=== PATIENT | male | born 1930 | race Caucasian/White ===

== ENCOUNTER → 2017-04-07 | Outpatient (CLI) | payer OTHER ==
[~2017-04-07] MED LIST: ASPIR-LOW81 MG PO; CARDURA4 MG PO; CARVEDILOL3.125 MG PO; CELEBREX 200 M200 M1 PO; COZAAR100 MG PO; DULOXETINE HCL30 MG PO; FISH OIL 1,001000 M2 PO; FISH OIL DR 1,1 EACH PO; FLOMAX0.4 MG PO; HYDROCHLOROTH12.5 M1 PO; LIDODERM 5%1 PATCH TOP; LINZESS290 MCG PO; NAPROSYN500 MG PO; NEURONTIN100 MG PO; NORCO 5-325 TA1 EACH PO; NUCYNTA50 MG PO; OXYBUTYNIN 5 MG5 M1 PO; OXYBUTYNIN 5 MG5 M2 PO; PERCOCET 5-3251 EACH PO; PLAVIX 75 MG TA75 M1 PO; PROSCAR 5MG TABL5 M1 PO; SOTALOL80 MG PO; TRAMADOL100 MG PO; TYLENOL EXTRA500 MG PO; VITAMIN B-12500 MCG PO; VITAMIN D2000 UNIT PO; VITAMIN D3400 UNIT PO; ZOCOR 20 MG TAB20 M1 PO
--- NOTE | 2017-04-08 08:24 | PAINCON ---
[address] [address] PAIN MANAGEMENT CONSULTATION Name: SARITAVANDA Soriano Room: [facility] NIR Man#: [id number] Admission: 04/07/17 Attend Phys: Alba Bullard Discharge: Date of : 32 Report #: [id number] THIS REPORT FOR: //name// CC: Dion Joseph DATE OF SERVICE: 04/07/2017 The patient is a very pleasant 86-year-old gentleman long known to pain clinic, being treated for lumbar radiculopathy status post decompressive laminectomy and axial back pain. Last seen in pain clinic on 01/13/2017. We did bilateral facet joint injections which the patient reports afforded some relief. He returns to pain clinic today for prolonged visit, he was seen from 8:50-9:20. Greater than 50% of this 30-minute visit was spent counseling the patient. 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 He has had a steroid injection in the past with some help. Pain has recurred over the holidays. He did see the orthopedic nurse practitioner on 02/19/2017. Apparently had an injection, near the right trochanteric bursa with unfortunately really no changes in the symptoms. Followed, he developed pain radiating to the calf and thigh. He had fallen at home 2 weeks ago. He notes he does "furniture walking" if he is not using his walker. He simply missed an object he was reaching for as he walked. He somewhat strained his left shoulder and presented to the Hospital ER. No fractures were noted. Followed up with Dr. Garrison, his orthopedic surgeon. He noted with no osseous pathology in the left shoulder and there appeared to be no complete rotator cuff tear. They have elected to continue with simply range of motion exercises. He did, at that time, repeat a right hip trochanteric bursa at this time with some relief, but really no dramatic improvement in symptoms (this was 03/2017). He is describing significant neurogenic claudication with pain and heavy sensation in his legs with any ambulation more than about 50-100 feet. He has been taking tramadol 50 mg 2 tablets 3 times a day with dwindling efficacy. He has had trouble with constipation using hydrocodone in the past. He incidentally tells me he is planning a river cruise in [place] in September and would like to try and get a little more functional prior to then. He works all of the [employer] limiting access to some of the high dollar [employer] "boxes." He enjoys job but is having trouble even walking from the parking lot to his job position. To his credit, he continues to exercise. He uses a recumbent bike 5 times a week, 40 minutes at a start. We talked today about adding some circuit training for some core stability and lower extremity strength. The patient notes subjective pain score is 5 on a VAS, but pain gets up to 9 [place] [address] PAIN MANAGEMENT CONSULTATION Name: VANDA STEIN [id number] Admission: 04/07/17 Attend Phys: Alba Bullard Discharge: Date of : 32 Report #: [id number] PHYSICAL EXAMINATION: Shows 5-foot 7-inch, 190-pound gentleman, BMI is 29.9 kilograms per meter squared. Blood pressure 156/99, pulse 67, respirations 16. Alert and oriented to person, place and time, judged to be a reasonable historian, getting more frustrated with ongoing pain. Rises from chair using armrest, modestly antalgic gait, diffuse tenderness across the low back, pain radiating into both legs with nominal activity. Reviewed prior therapeutic options, we had trialed a spinal cord stimulator back in 2013. This did not afford good relief. He cannot take nonsteroidal anti-inflammatory medications due to hypertension. RECOMMENDATION: Long discussion with the patient today about therapeutic options. Ultimately, we have elected to get an MRI with and without contrast of the lumbar spine. We will trial Nucynta 50 mg 3 times a day one-half to one tablet as needed for pain. This should afford less sedation and constipation than the hydrocodone. If for some reason, insurance company will not pay for that, we will try Percocet 5/325, similarly one-half to one tablet 3 times a day. See him back in 4 weeks for reevaluation. We reviewed the MRI at that time. Pain impact score is 7/70. We may consider a trial of a high frequency spinal cord stimulator without paresthesia. He may get better benefit if other therapeutic modalities do not afford efficacy. Discharged in good and stable condition after prolonged visit. Follow up in 30 days to evaluate efficacy of medication change and review MRI with and without contrast of the lumbar spine. <ELECTRONICALLY SIGNED> By: Tariq Joseph DO 04/08/17 0824 1457 1955Tariq Joseph DO /nt
== END ==
LOC: M.PC 01:24
DX: M54.16 Radiculopathy, lumbar region (principal); M54.89 Other dorsalgia; Z98.890 Other specified postprocedural states

== ENCOUNTER → 2017-05-05 | Outpatient (CLI) | payer OTHER ==
--- NOTE | 2017-05-10 07:49 | PAINCON ---
[address] [address] PAIN MANAGEMENT CONSULTATION Name: VANDA STEIN Room: [facility] Donovan#: [id number] Admission: 05/05/17 Attend Phys: Alba Bullard Discharge: Date of : 32 Report #: [id number] THIS REPORT FOR: //name// CC: Dion Joseph HISTORY OF PRESENT ILLNESS: The patient is a pleasant 86-year-old gentleman long known to pain clinic, being treated for lumbar radiculopathy status post decompressive laminectomy, axial back pain, lumbar spondylosis. He is seen for prolonged visit today, from 8:05 to 8:35, greater than 50% of this 25+ minute visit was spent counseling the patient. I reviewed the MRI obtained on 04/14/2017. It does show severe degenerative loss of disk height at L1-L2, L2-L3, notes canal narrowed to 0.9 cm, left neural foraminal narrowing. L3-L4 shows livhfvju-zw-bulgcw degenerative disk space, narrowing thecal sac down to 0.7 cm, left-side worse than the right. L4-L5 notes uykosvwd-kf-gufqwb degenerative disk space narrowing. L5-S1 similarly notes narrowing with left neural foramen, moderately narrowed compared to the right. There is some atypical focal contour bulge along the posterior margin of the abdominal aorta, thought to represent possibly an atherosclerotic ulcer or atypical focal aneurysm. This does appear a little larger than previously. We will refer the patient to his primary treating physician for further evaluation. With ongoing lumbar radicular pain and increased neurogenic claudication symptoms, I am concerned that the patient's functional status is becoming more compromised, though I do not see any dramatic surgical issues in his back. The patient had a coronary artery bypass graft surgery in 1995. They did scavenge left saphenous vein graft. He has significant pretibial edema bilateral lower extremities, left greater than right. Unfortunately, he has a nonhealing lesion on the right leg since about January. Has some clear drainage here. He does have +1 to 2 pretibial edema bilaterally. I think that the reason for the nonhealing component is simply the ongoing weeping nature of the lesion. I did refer him to the wound clinic for this. He is following up with his materials development engineer this afternoon, we will ask them to evaluate the aortic aneurysm findings. Regarding future therapeutic options, we have elected to continue his tramadol during the day and Percocet only at night (daytime use of Percocet cause hypersomnolence). We will authorize epidural injection at L3-L4 at next visit to help with the radicular component of pain. May give further consideration to high [place] [address] PAIN MANAGEMENT CONSULTATION Name: VANDA STEIN Room: [facility] Donovan#: [id number] Admission: 05/05/17 Attend Phys: Alba Bullard Discharge: Date of : 32 Report #: [id number] We will seek authorization for epidural injection under fluoroscopy at next visit. PHYSICAL EXAMINATION: Does note a pleasant 86-year-old gentleman. Vital signs show blood pressure 150/75, pulse 87, respirations 16. Rises from chair using armrest. Modestly antalgic gait. Stooped posture. Aforementioned right lower extremity weeping lesion. Positive straight leg raise bilaterally, decreased hip flexion strength compatible with bilateral L3-L4 stenosis. RECOMMENDATIONS: 1. The patient was discharged in good and stable condition after prolonged visit today. 2. Continue tramadol during the day, Percocet at night. 3. We will seek authorization for L3-L4 epidural injection midline under fluoroscopy at next visit. 4. Consideration for spinal cord stimulator trial (high frequency, Nevro). 5. Follow up with cardiovascular surgeon regarding aneurysm findings. ADDENDUM Reviewing the chart, it appears that Dr. Tee has already ordered an ultrasound of the retroperitoneum and aorta, this was accomplished 04/19/2017. 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 No aneurysm was noted. Maximum caliber of the abdominal aorta was 2.6 x 2.3 cm. <ELECTRONICALLY SIGNED> By: Tariq Joseph DO 05/10/17 0749 1235 1849Tariq Joseph DO /nt
== END ==
LOC: M.PC 01:41
DX: M54.16 Radiculopathy, lumbar region (principal); M54.9 Dorsalgia, unspecified; M47.896 Other spondylosis, lumbar region; Z98.890 Other specified postprocedural states

== ENCOUNTER → 2017-05-05 | Outpatient (CLI) | payer OTHER | LOC: M.WC 09:00 | DX: I87.2 Venous insufficiency (chronic) (peripheral) (principal); L97.811 Non-pressure chronic ulcer of other part of right lower leg limited to breakdown of skin; Z95.1 Presence of aortocoronary bypass graft; Z87.891 Personal history of nicotine dependence; Z72.89 Other problems related to lifestyle ==

== ENCOUNTER → 2017-05-12 | Outpatient (CLI) | payer OTHER | LOC: M.WC 03:23 → M.PC 11:30 | DX: L97.211 Non-pressure chronic ulcer of right calf limited to breakdown of skin (principal); I87.311 Chronic venous hypertension (idiopathic) with ulcer of right lower extremity; I70.232 Atherosclerosis of native arteries of right leg with ulceration of calf; F06.31 Mood disorder due to known physiological condition with depressive features; Z68.29 Body mass index [BMI] 29.0-29.9, adult; Z87.891 Personal history of nicotine dependence; Z72.89 Other problems related to lifestyle; Z95.1 Presence of aortocoronary bypass graft ==

== ENCOUNTER → 2017-05-19 | Outpatient (CLI) | payer OTHER ==
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
== END ==
LOC: M.WC 04:45 → M.PC 10:00
DX: I70.232 Atherosclerosis of native arteries of right leg with ulceration of calf (principal); I87.311 Chronic venous hypertension (idiopathic) with ulcer of right lower extremity; L97.811 Non-pressure chronic ulcer of other part of right lower leg limited to breakdown of skin; I71.4 Abdominal aortic aneurysm, without rupture; F06.31 Mood disorder due to known physiological condition with depressive features; Z87.891 Personal history of nicotine dependence; Z72.89 Other problems related to lifestyle; Z95.1 Presence of aortocoronary bypass graft

== ENCOUNTER → 2017-05-26 | Outpatient (CLI) | payer OTHER | LOC: M.WC 01:53 | DX: I70.232 Atherosclerosis of native arteries of right leg with ulceration of calf (principal); L97.811 Non-pressure chronic ulcer of other part of right lower leg limited to breakdown of skin; I71.4 Abdominal aortic aneurysm, without rupture; F06.31 Mood disorder due to known physiological condition with depressive features; Z68.29 Body mass index [BMI] 29.0-29.9, adult; Z87.891 Personal history of nicotine dependence; Z72.89 Other problems related to lifestyle; Z95.1 Presence of aortocoronary bypass graft ==

== ENCOUNTER → 2017-06-02 | Outpatient (CLI) | payer OTHER | LOC: M.WC 01:54 | DX: I87.311 Chronic venous hypertension (idiopathic) with ulcer of right lower extremity (principal); L97.811 Non-pressure chronic ulcer of other part of right lower leg limited to breakdown of skin; I70.232 Atherosclerosis of native arteries of right leg with ulceration of calf; I71.4 Abdominal aortic aneurysm, without rupture; F06.31 Mood disorder due to known physiological condition with depressive features; Z68.29 Body mass index [BMI] 29.0-29.9, adult; Z87.891 Personal history of nicotine dependence; Z95.1 Presence of aortocoronary bypass graft ==

== ENCOUNTER 2017-06-04 06:15 | Inpatient (IN) | payer OTHER ==
[~2017-06-04] VITALS: Ht 170.2 cm; Wt 88.5 kg
[~2017-06-04 06:15] MED LIST changes: -NEURONTIN100 MG PO; -PLAVIX 75 MG TA75 M1 PO; -SOTALOL80 MG PO; -VITAMIN D3400 UNIT PO
[2017-06-04 06:47] LABS: ABSOLUTE BASOPHILS 0.1 thou/uL (0.0-0.2); ABSOLUTE LYMPHOCYTES 1.2 thou/uL (0.8-5.3); ABSOLUTE MONOCYTES 0.5 thou/uL (0.0-1.2); ABSOLUTE NEUTROPHILS 7.5 thou/uL (1.6-8.1); BASOPHILS 0.8 %; EOSINOPHILS 0.5 %; HEMATOCRIT 38.3 % (42.0-52.0); LYMPHOCYTES 12.7 %; MCH 32.5 pg (26.0-34.0); MCHC 34.1 g/dL (28.0-37.0); MCV 95.4 fL (80.0-100.0); MONOCYTES 5.1 %; MPV 6.7 fl. (7.2-11.1); NUCLEATED RBCS 0 /100WBC; PLATELET COUNT* 259 thou/uL (150-400); POLYS 80.9 %; RBC 4.02 mil/uL (4.50-6.00); RDW-CV 12.5 % (10.5-14.5); WBC 9.3 thou/uL (4.0-11.0)
[2017-06-04 07:03] LABS: CALCIUM 8.9 mg/dL (8.5-10.1); CREATININE 1.3 mg/dL (0.6-1.3); POTASSIUM 3.6 mmol/L (3.5-5.1)
--- NOTE | 2017-06-04 13:55 | EKG ---
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: [facility] : 1930 Requested By: Michael Way Order Number: [id number] Reading MD: Efrain Jones Measurements Intervals [place] Rate: 82 P: SD: QRS: -13 QRSD: 109 T: 44 QT: 398 QTc: 465 Interpretive Statements Atrial fibrillation RSR' in V1 or V2, right VCD or RVH Left ventricular hypertrophy No previous ECG available for comparison Electronically Signed On 06-04-2017 13:55:13 CDT by Efrain Jones [email or web address] <ELECTRONICALLY SIGNED> By: Efrain Jones MD, [facility] 06/04/17 1355 0705 4 Efrain Jones MD, FACC /EPI
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
[2017-06-04 19:45] VITALS: BP 117/61
[2017-06-05] VITALS (8 sets, daily range): BP systolic 120–169; BP diastolic 54–86
--- NOTE | 2017-06-05 03:07 | NUR ---
ASSUMED CARE OF PT AT 1900. PT IS ALERT AND ORIENTED. VSS. PERRLA. NO COMPLAINTS OF PAIN. UP WITH [address]AC IN [address] OVER RIGHT CALF. PT IS SLEEPING QUIETLY IN BED. RESPIRATIONS ARE EVEN AND NONLABORED. WILL CONTINUE TO MONITOR PT.
--- NOTE | 2017-06-05 10:12 | NUR ---
INITIAL ASSESSMENT: Pt evaluated for d/c planning needs. Reviewed chart and spoke with nurse and pt. Pt is alert and oriented. Pt is and lives alone in house. Pt was independent with ADL's prior to admission. Pt remains active in the community and is still driving. Pt has been seen in the wound clinic at [facility]. Pt has not had home health in the past. Pt has walker and cane at home. Pt is concerned about his mobility with wound vac and living alone. Discussed pt's concerns with RN. Will remain available to assist as needed.
--- NOTE | 2017-06-05 12:39 | EKG ---
[place] [address] ELECTROCARDIOGRAM REPORT Name: VANDA STEIN Room: [address] ADM IN M.R.#: [id number] Admission: 06/04/17 Attend Phys: Efrain Jones MD, F Discharge: Date of : 32 Report #: [id number] THIS REPORT FOR: //name// [facility] Test Date: 2017-06-05 Test Time: 07:47:22 Pat Name: VANDA STEIN Department: Room: [address] Gender: M Crew Foreman: [facility] : 1930 Requested By: Efrain Jones Order Number: [id number] Reading MD: Amor Grant Measurements Intervals [place] Rate: 58 P: -23 SC: 202 QRS: 1 QRSD: 113 T: 30 QT: 479 QTc: 471 Interpretive Statements Sinus rhythm Atrial premature complex Incomplete right bundle branch block Compared to ECG 06/04/2017 07:05:46 Atrial premature complex(es) now present Incomplete right bundle-branch block now present Atrial fibrillation no longer present Right ventricular hypertrophy no longer present Left ventricular hypertrophy no longer present Electronically Signed On 06-05-2017 12:39:15 CDT by Amor Grant [email or web address] <ELECTRONICALLY SIGNED> By: Amor Grant MD, FACC 06/05/17 1239 0747 0747 Amor Grant MD, FAC /EPI
--- NOTE | 2017-06-05 13:16 | NUR ---
ASSUMED CARES OF PT AT 0700. PT IN BED, BED IN LOW LOCKED POSITION. CALL BUTTON AND PERSONAL ITEMS IN PT REACH. FALL PRECAUTIONS IN PLACE. SCD ON LEFT LEG, WOUND VAC RUNNING ON RIGHT LEG, DRESSING IN PLACE, C/D/I. PT ANNOYED AND FRUSTRATED, FEELS LIKE ARE NOT TELLING HIM/EXPLAINING THING TO HIM. NURSES SAT DOWN AND TALKED IN DEPTH WITH PT ABOUT WOUND, WOUND VAC, DR. GARCIA WAS CALLED AND STATED OFFICE WOULD SEE PT ON WEDNESDAY REGARDING PT CONCERNS. PT A&O X4, OCC AFIB, BRADYCARDIA ON CAGE CLERK. LCTAB, VSS ON RA. AFEBRILE, PERRLA, SKIN INTACT OTHER THAN RIGHT LE. PT SBA TO BATHROOM AND CHAIR. LAST BM YESTERDAY. RIGHT FA IV PATENT TO FLUSH/SALINE LOCKED. CONSULTS CARDIO, WOUND, VASCULAR. PT DENIES PAIN AT THIS TIME. RECLINER PROVIDED FOR COMFORT. EDUCATION NOTES GIVEN TO PT REGARDING WOUND CARE, DIET AND WOUND VAC. PT PROGRESSING TOWARDS GOAL. HOURLY ROUNDS CONTINUE. WILL CONTINUE TO MONITOR PT PROGRESS AND STATUS.
--- NOTE | 2017-06-05 18:56 | NUR ---
PT REMAINS STABLE AT SHIFT CHANGE. REPORT TO CONFERENCE SERVICES DIRECTOR FOR CONTINUED CARES. VSS ON RA. OCC. HYPERTENSIVE. WOUND VAC IN PLACE RIGHT LE. HOURYLY ROUNDS COMPLETED. PT PROGRESSING TOWARDS GOAL.
--- NOTE | 2017-06-06 01:08 | NUR ---
TOOK PT INTO CARE AT 1930. A & O, ABLE TO MAKE NEEDS KNOWN, ASSESSMENT COMPLETED CHARTED, RES NO C/O PAIN AT THIS TIME, RES RESTING COMFORTABLY IN BED, WOUND VAC ON RIGHT LEG. WILL CONTINUE WITH PLAN OF CARE.
[2017-06-06 04:00] VITALS: BP 152/78
[2017-06-06 08:00] VITALS: BP 150/69
[2017-06-06 08:27] VITALS: BP 150/69
[2017-06-06] MEDS ORDERED: SOTALOL80 MG PO (12:52)
--- NOTE | 2017-06-06 14:34 | NUR ---
ORDER RECEIVED TO DISCHARE PATIENT HOME TO SELF CARE. MED REC, MEDICATION EDUCATION, STROKE EDUCATION, NEED FOR FOLLOW UP APPOINTMNETS WITH CARDIOLOGY AND VASACULAR COVERED AND AND STATED UNDERSTOOD BY PATIENT. DIANA EDUCATED ON USE AND CARE FOR WOUND VAC WITH DIRECTIONS FROM DR GERMAIN. IV AND TELEMETRY PACK REMOVED. VITAL SIGNS STABLE AND PATIENT IN NOAPPARENT DISTRESS AT TIME OF DISCHARGE. PATIENT WAS TAKEN VIA WHEELCHAIR TO AWAITING CAR WITH SON PRESENT. HOURLY ROUNDING COMPLETED FOR PATIENT SAFETY. DISCHARE TIME OF 13:30.
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
--- NOTE | 2017-06-11 11:08 | D ---
[address] [address] DISCHARGE SUMMARY Name: VANDA STEIN Room: [address] IN M.R.#: [id number] Admission: 06/04/17 Attend Phys: Efrain Jones MD, F Discharge: 06/06/17 Date of : 32 Report #: [id number] THIS REPORT FOR: //name// CC: Efrain Tee DATE OF SERVICE: 06/06/2017 FINAL DIAGNOSES: 1. Nonhealing wound. 2. Status post wound VAC placement. 3. Postoperative atrial fibrillation, sotalol loading. 4. Coronary artery disease. HOSPITAL SUMMARY: The patient is an 86-year-old man who has a nonhealing ulcer after traumatic injury to his leg. He underwent a wound VAC per Dr. Way from Vascular Surgery. Postoperatively, he developed atrial fibrillation. Based on this, he was placed on sotalol and converted to a sinus rhythm and finished sotalol loading today. His discharge heart rate is 50-55 beats per minute on telemetry. He did not have any recurrences of atrial fibrillation. His QT interval is less than 450 milliseconds. He has a history of coronary artery disease, but denied chest pain or pressure throughout his hospitalization previously. He is followed by Dr. Song for this. FOLLOWUP: He will follow up with Dr. Song within 3-4 weeks. DISCHARGE MEDICATIONS: His home medications will remain unchanged with the exception of substituting carvedilol. He will switch to sotalol 80 mg p.o. b.i.d. Other medications will include the following: Baby aspirin 81 mg daily, atorvastatin 20 mg daily, doxazosin 4 mg daily, losartan 100 mg daily. <ELECTRONICALLY SIGNED> By: Amor Grant MD, [facility] 06/11/17 1108 1046 1113Amor Grant MD, FAC /nt
[2017-06-17] MEDS ORDERED: HYDROCHLOROTH12.5 M1 PO (09:32)
[2017-06-17] MEDS ORDERED: PLAVIX 75 MG TA75 M1 PO (16:02)
--- NOTE | 2017-06-23 09:47 | OP ---
[address] [address] OPERATIVE REPORT Name: VANDA STEIN Room: [address] IN M.R.#: [id number] Admission: 06/04/17 Attend Phys: Efrain Jones MD, F Discharge: 06/06/17 Date of : 32 Report #: [id number] THIS REPORT FOR: //name// CC: Efrain Tee DATE OF SERVICE: 06/04/2017 PREOPERATIVE DIAGNOSIS: Right lower extremity venous stasis ulcer. POSTOPERATIVE DIAGNOSIS: Right lower extremity venous stasis ulcer. SURGEON: Michael Way DO. BINGO FLOATER: None. PROCEDURE: Excisional debridement, right lower extremity venous stasis ulcer measuring 4 cm x 4 cm x 1.5 cm in depth, excising muscle and tendon. ESTIMATED BLOOD LOSS: 50 mL. SPECIMEN: None. COMPLICATIONS: None. CONDITION: Stable. DISPOSITION: Home. INDICATIONS FOR THE PROCEDURE AND CONSENT: The patient presented with right lower extremity venous stasis ulcer initiated by trauma. The patient has had some difficulty healing. There have been several barriers to his care including inability to tolerate compression wraps. He has refused debridements in the wound care center due to excessive copay cost. We have done our best to work around these issues and I have discussed wound VAC therapy as well, which may limit the number debridements that are required. He is here today for excisional debridement and possible wound VAC placement. He is hopeful to also remain outpatient. There has been some discussion over whether or not he has new onset atrial fibrillation, Cardiology is to evaluate him perioperatively to discuss this issue. After all risks and benefits were discussed with the patient, the patient wished to proceed, was consented and scheduled. PROCEDURE IN DETAIL: After timeout was performed, the patient was placed in [address] [address] OPERATIVE REPORT Name: VANDA STEIN Room: [address] IN [facility]#: [id number] Admission: 06/04/17 Attend Phys: Efrain Jones MD, F Discharge: 06/06/17 Date of : 32 Report #: [id number] supine position with sterile prep and drape of the right lower extremity. A 10 blade scalpel was then used to excise the necrosed skin, muscle and tendon and remove significant slough and debris from the base of the wound. This was debrided back to healthy bleeding muscle. After this debridement, the depth of his wound had increased significantly. I did not feel a shallow disposable VAC would be appropriate for the depth of the wound. I then, as the patient did want to be discharged, was able to modify a Prevena VAC to accommodate the depth as well as provide a disposable VAC. I did accomplish this by removing the layer that normally would rest on the skin and cut the foam to fit the wound and protected the skin with a clear adhesive dressing in the periwound. I then applied the VAC on top of this. It appeared to work well and maintain suction. A light compressive Rene was then applied. The patient tolerated the procedure well. Lap, needle and instrument counts were correct. The patient was transferred to recovery in stable condition. <ELECTRONICALLY SIGNED> By: Michael Way DO 06/23/[id number] DO /nt
[2017-08-04] MEDS ORDERED: NEURONTIN100 MG PO (12:35)
== END 2017-06-06 13:15 | disposition home or self-care (01) | DRG 264 ==
LOC: M.SUR 06:15 → M.2W 14:51 → M.TBA 14:51 → M.2W 14:55 → M.SUR 16:23 → M.2W 06-06 13:15
PROVIDERS: Surgery; ADMIT Internal Medicine Cardiovascular Disease
PROC: 0JBN0ZZ Excision of Right Lower Leg Subcutaneous Tissue and Fascia, Open Approach (ICD-10-PCS; principal; 2017-06-04)
DX: I70.201 Unspecified atherosclerosis of native arteries of extremities, right leg (principal); J98.11 Atelectasis; I48.0 Paroxysmal atrial fibrillation; I10 Essential (primary) hypertension; E78.5 Hyperlipidemia, unspecified; G89.29 Other chronic pain; M54.9 Dorsalgia, unspecified; I25.10 Atherosclerotic heart disease of native coronary artery without angina pectoris; Z95.1 Presence of aortocoronary bypass graft; Z98.49 Cataract extraction status, unspecified eye; Z82.49 Family history of ischemic heart disease and other diseases of the circulatory system

== ENCOUNTER → 2017-06-09 | Outpatient (CLI) | payer OTHER ==
[~2017-06-09] MED LIST changes: +NEURONTIN100 MG PO; +PLAVIX 75 MG TA75 M1 PO; +SOTALOL80 MG PO; +VITAMIN D3400 UNIT PO
== END ==
LOC: M.WC 02:21
DX: I70.232 Atherosclerosis of native arteries of right leg with ulceration of calf (principal); I87.311 Chronic venous hypertension (idiopathic) with ulcer of right lower extremity; L97.811 Non-pressure chronic ulcer of other part of right lower leg limited to breakdown of skin; I71.4 Abdominal aortic aneurysm, without rupture; F06.31 Mood disorder due to known physiological condition with depressive features; Z68.29 Body mass index [BMI] 29.0-29.9, adult; Z87.891 Personal history of nicotine dependence; Z95.1 Presence of aortocoronary bypass graft

== ENCOUNTER → 2017-06-16 | Outpatient (CLI) | payer OTHER | LOC: M.WC 00:26 → M.PC 08:40 | DX: I87.311 Chronic venous hypertension (idiopathic) with ulcer of right lower extremity (principal); L97.811 Non-pressure chronic ulcer of other part of right lower leg limited to breakdown of skin; I70.232 Atherosclerosis of native arteries of right leg with ulceration of calf; F06.31 Mood disorder due to known physiological condition with depressive features; Z68.29 Body mass index [BMI] 29.0-29.9, adult; Z87.891 Personal history of nicotine dependence; Z95.1 Presence of aortocoronary bypass graft ==

== ENCOUNTER → 2017-06-17 | Outpatient (CLI) | payer OTHER ==
[~2017-06-17] VITALS: Ht 170.2 cm; Wt 81.6 kg
[2017-06-17] VITALS (8 sets, daily range): BP systolic 140–175; BP diastolic 53–90
[2017-06-17 09:33] LABS: ABSOLUTE BASOPHILS 0.1 thou/uL (0.0-0.2); ABSOLUTE EOSINOPHILS 0.1 thou/uL (0.0-0.7); ABSOLUTE LYMPHOCYTES 1.2 thou/uL (0.8-5.3); ABSOLUTE MONOCYTES 0.5 thou/uL (0.0-1.2); ABSOLUTE NEUTROPHILS 6.3 thou/uL (1.6-8.1); BASOPHILS 0.8 %; EOSINOPHILS 1.6 %; HEMATOCRIT 38.4 % (42.0-52.0); HEMOGLOBIN 13.1 gm/dL (14.0-18.0); LYMPHOCYTES 14.4 %; MCH 32.3 pg (26.0-34.0); MCHC 33.9 g/dL (28.0-37.0); MONOCYTES 6.3 %; MPV 7.3 fl. (7.2-11.1); NUCLEATED RBCS 0 /100WBC; PLATELET COUNT* 270 thou/uL (150-400); POLYS 76.9 %; RBC 4.05 mil/uL (4.50-6.00); RDW-CV 12.1 % (10.5-14.5); WBC 8.1 thou/uL (4.0-11.0)
[2017-06-17 09:41] LABS: CALCIUM 9.1 mg/dL (8.5-10.1); CREATININE 1.1 mg/dL (0.6-1.3)
[2017-06-17 09:46] LABS: ALBUMIN 3.3 g/dL (3.4-5.0); TOTAL BILIRUBIN 0.5 mg/dL (<0.1-1.0); TOTAL PROTEIN 6.6 g/dL (6.4-8.2)
--- NOTE | 2017-06-23 09:47 | OP ---
[facility] [address] [place] [address] OPERATIVE REPORT Name: SARITAVANDA Soriano Room: [facility]#: [id number] Admission: 06/17/17 Attend Phys: Alba Dunn Discharge: Date of : 32 Report #: [id number] THIS REPORT FOR: //name// CC: Michael Tee DATE OF SERVICE: 06/17/2017 PREOPERATIVE DIAGNOSIS: Peripheral vascular disease with ulcer in right lower extremity. POSTOPERATIVE DIAGNOSES: Peripheral vascular disease with ulcer in right lower extremity. Additionally, the patient also has claudication. ANESTHESIA: Moderate sedation. PROCEDURES: 1. Ultrasound-guided access, left common femoral artery. 2. Aortogram. 3. Right lower extremity angiogram, catheter position third order. 4. Anterior tibial and posterior tibial and tibioperoneal trunk angioplasty with Bard 3 mm x 150 Ultraverse angioplasty balloon. 5. Limited angiogram, left common femoral artery. 6. Angio-Seal closure, left common femoral artery. ESTIMATED BLOOD LOSS: Minimal. SPECIMEN: None. COMPLICATIONS: None. CONDITION: Stable. DISPOSITION: Home. INDICATIONS FOR THE PROCEDURE AND CONSENT: The patient is an 86-year-old male who presented to [facility] Center with traumatic venous stasis ulcer. The patient has had difficulty healing despite some debridement, some compression and some wound VAC therapy. The patient has intermittently been compliant with recommendations. At one point, I sent the patient for CT angiogram and diagnostic imaging. Unfortunately, this failed to visualize the tibial vessels due to timing of contrast. I discussed with the patient repeat CT angiogram with focus, timing versus diagnostic angiography and possible intervention. The patient elected for angiography. The patient was consented and scheduled. PROCEDURE IN DETAIL: After timeout was performed, the patient was placed in [place] [id number] OPERATIVE REPORT Name: SARITAVANDA Christie Room: [facility] NIR Man#: [id number] Admission: 06/17/17 Attend Phys: Alba Dunn Discharge: Date of : 32 Report #: [id number] supine position with sterile prep and drape of the anterior groin, thigh and abdomen. The ultrasound was utilized to identify the left common femoral artery and Seldinger technique was used to place a 6-Malian sheath. Glidewire Advantage and UF catheter were advanced into the infrarenal aorta and the aortogram was performed. This demonstrated the aorta, bilateral iliac, external and internal iliac arteries to be widely patent without flow limitation or stenosis. I then advanced a Glidewire Advantage and UF catheter in the right external iliac artery and performed a right lower extremity angiogram. The right lower extremity angiogram demonstrated contrast to be very slow to flow and apparently had a very slow cardiac output. He did have hypertension and despite high blood pressure, was unable to drive the contrast in a very timely fashion. It took approximately 8-9 seconds for the contrast to go from the femoral area to the tibial area. Therefore, advanced a Glidewire Advantage in the distal popliteal and use of seeker catheter over a wire to get more directed imaging of the tibial vessels as I could not see them well from above. This demonstrated the anterior tibial artery to have multiple tandem stenoses, greater than 80%, including one greater than 50% near the origin. The tibioperoneal trunk and peroneal artery were opened. The posterior tibial artery was patent, but it also had a very focal severe stenosis greater than 80% in its mid portion. These appeared appropriate for angioplasty, especially the anterior tibial in light of his nonhealing wound and ischemic appearing muscle. I then systemically heparinized the patient with 6000 units of heparin, allowed to circulate for 3 minutes. I exchanged the 6-Malian sheath for a Johann up and over sheath. I advanced the Glidewire Advantage and seeker catheter into the anterior tibial vessel and was able to negotiate down the anterior tibial without much difficulty. We removed the seeker and obtained a 3 mm x 150 angioplasty balloon. This was advanced into position and angioplasty performed and held for 3 minutes. Two tandem inflations were required. Repeat angiography demonstrated excellent radiographic result. In order to take those pictures, I exchanged for an 0.014 wire and used a copilot. I then was able to renegotiate the 0.014 wire into the posterior tibial vessel and advanced the 3 mm balloon over a wire and angioplasty was performed and held for 3 minutes. Again, tandem inflations were performed to ensure uniformity along the entire vessel. Repeat angiography demonstrated excellent radiographic result with improved flow. I then retracted the sheath into the left external iliac artery and attempted angiography of the left lower extremity. Again, cardiac output was a significant issue. I was unable to visualize the tibial vessels even with prolonged wait times and attempted timing of boluses. He may require left lower extremity angiogram should he demonstrate improvement in his symptoms on his right leg. [address] [place] [address] OPERATIVE REPORT Name: VANDA STEIN Room: [facility] LilliRaj#: [id number] Admission: 06/17/17 Attend Phys: Alba Dunn Discharge: Date of : 32 Report #: [id number] I then noted that the common femoral vessel was appropriate for Angio-Seal closure and a 6-Malian Angio-Seal was selected and deployed in standard fashion. Pressure was held for hemostasis. The patient tolerated the procedure well. Lap, needle and instrument counts were correct. <ELECTRONICALLY SIGNED> By: Michael Way DO 06/23/[address] DO /jt
== END | disposition home or self-care (01) ==
LOC: M.INT 08:53
PROVIDERS: Surgery
DX: I70.212 Atherosclerosis of native arteries of extremities with intermittent claudication, left leg (principal); L97.829 Non-pressure chronic ulcer of other part of left lower leg with unspecified severity; I10 Essential (primary) hypertension; E78.00 Pure hypercholesterolemia, unspecified; Z96.642 Presence of left artificial hip joint; Z98.890 Other specified postprocedural states; Z79.82 Long term (current) use of aspirin; Z79.899 Other long term (current) drug therapy; Z79.891 Long term (current) use of opiate analgesic

== ENCOUNTER → 2017-06-18 | Outpatient (CLI) | payer OTHER | LOC: M.WC 00:37 | DX: I87.311 Chronic venous hypertension (idiopathic) with ulcer of right lower extremity (principal); L97.811 Non-pressure chronic ulcer of other part of right lower leg limited to breakdown of skin; I70.232 Atherosclerosis of native arteries of right leg with ulceration of calf; I71.4 Abdominal aortic aneurysm, without rupture; F06.31 Mood disorder due to known physiological condition with depressive features; Z87.891 Personal history of nicotine dependence; Z95.1 Presence of aortocoronary bypass graft ==

== ENCOUNTER → 2017-06-21 | Outpatient (CLI) | payer OTHER | LOC: M.WC 02:09 | DX: I87.311 Chronic venous hypertension (idiopathic) with ulcer of right lower extremity (principal); L97.811 Non-pressure chronic ulcer of other part of right lower leg limited to breakdown of skin; I70.232 Atherosclerosis of native arteries of right leg with ulceration of calf; I71.4 Abdominal aortic aneurysm, without rupture; F06.31 Mood disorder due to known physiological condition with depressive features; Z68.29 Body mass index [BMI] 29.0-29.9, adult; Z87.891 Personal history of nicotine dependence ==

== ENCOUNTER → 2017-06-23 | Outpatient (CLI) | payer OTHER ==
--- NOTE | 2017-06-24 06:52 | PAINCON ---
[address] [address] PAIN MANAGEMENT CONSULTATION Name: SARITAVANDA Soriano Room: [facility] [address] Donovan#: [id number] Admission: 06/23/17 Attend Phys: Alba Bullard Discharge: Date of : 32 Report #: [id number] THIS REPORT FOR: //name// CC: Dion Joseph The patient is a very pleasant 86-year-old gentleman, prior seen in the pain clinic on 05/19/2017. We did an epidural injection at that time for ongoing lumbar radiculopathy. He is status post decompressive laminectomy him after he chose a little higher level due to a prior diagnostic findings, epidural injection at L3-L4 at last visit fortunately did afford very good relief. The patient notes some 75% relief overall, has ongoing improvement of baseline pain. INTERVAL HISTORY: Since we last saw him, he has had significant medical history. I referred him to the wound clinic for a nonhealing lesion on the right lower extremity. Ultimately, this has been debrided several times and he now has a wound VAC here. He was seen on 06/06/2017 for right lower extremity stasis ulceration, ultimately progressed. On 06/17/2017, he did have angioplasty of the right lower extremity. Subsequently, he was diagnosed with atrial fibrillation in May. He was started on Plavix. He had a difficult issue with epistaxis. 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 PHYSICAL EXAMINATION: Staff notes a pleasant 86-year-old gentleman wearing a wound VAC, rates a subjective pain score of 2 on a VAS. He states that the injection is noted to afford a 75% relief. He still has axial back pain, but he is doing reasonably well from a walking standpoint. He has weakness in his legs, but to his credit, he has resumed working at the [employer]. 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 He did see a Judith, advanced nurse practitioner at Dr. Greenfield's office. They tentatively scheduled the revision laminectomy on 07/29/2017. Given, however, the current issue with atrial fibrillation, anticoagulation and nonhealing right lower extremity lesion, this will obviously have to be postponed. PHYSICAL EXAMINATION: Otherwise, is relatively unchanged. Blood pressure 107/66, pulse 66, respirations 18. BMI is 28.5 kilograms per meter squared. Rises from chair using armrest, modestly antalgic gait, diffuse tenderness across the low back, favoring the right leg where there is the open lesion. RECOMMENDATION: The patient did not require renewal of his Percocet prescription, tramadol, which he is taking essentially 100 mg 3 times a day, it has been prescribed by Dr. Tee. I will be [place] [address] PAIN MANAGEMENT CONSULTATION Name: VANDA STEIN Room: [facility] NIR Man#: [id number] Admission: 06/23/17 Attend Phys: Alba Bullard Discharge: Date of : 32 Report #: [id number] an as-needed basis. He understands we cannot do further interventional therapy while he is on Plavix. I will encourage him to follow up with Dr. Greenfield. <ELECTRONICALLY SIGNED> By: Tariq Joseph DO 06/24/17 0652 1403 1449Tariq Joseph DO /nt
== END ==
LOC: M.PC 02:38
DX: M54.16 Radiculopathy, lumbar region (principal)

== ENCOUNTER → 2017-06-23 | Outpatient (CLI) | payer OTHER | LOC: M.WC 02:49 | DX: T81.89XD Other complications of procedures, not elsewhere classified, subsequent encounter (principal); I70.232 Atherosclerosis of native arteries of right leg with ulceration of calf; I87.311 Chronic venous hypertension (idiopathic) with ulcer of right lower extremity; L97.811 Non-pressure chronic ulcer of other part of right lower leg limited to breakdown of skin; I71.4 Abdominal aortic aneurysm, without rupture; F06.31 Mood disorder due to known physiological condition with depressive features; Z68.29 Body mass index [BMI] 29.0-29.9, adult; Z87.891 Personal history of nicotine dependence; Z95.1 Presence of aortocoronary bypass graft; Y83.8 Other surgical procedures as the cause of abnormal reaction of the patient, or of later complication, without mention of misadventure at the time of the procedure ==

== ENCOUNTER → 2017-06-25 | Outpatient (CLI) | payer OTHER | LOC: M.WC 01:37 | DX: T81.89XD Other complications of procedures, not elsewhere classified, subsequent encounter (principal); I87.311 Chronic venous hypertension (idiopathic) with ulcer of right lower extremity; L97.811 Non-pressure chronic ulcer of other part of right lower leg limited to breakdown of skin; I70.232 Atherosclerosis of native arteries of right leg with ulceration of calf; I71.4 Abdominal aortic aneurysm, without rupture; F06.31 Mood disorder due to known physiological condition with depressive features; Z68.29 Body mass index [BMI] 29.0-29.9, adult; Z87.891 Personal history of nicotine dependence; Z95.1 Presence of aortocoronary bypass graft; Y83.8 Other surgical procedures as the cause of abnormal reaction of the patient, or of later complication, without mention of misadventure at the time of the procedure ==

== ENCOUNTER → 2017-06-28 | Outpatient (CLI) | payer OTHER | LOC: M.WC 01:38 | DX: T81.89XD Other complications of procedures, not elsewhere classified, subsequent encounter (principal); I87.311 Chronic venous hypertension (idiopathic) with ulcer of right lower extremity; L97.811 Non-pressure chronic ulcer of other part of right lower leg limited to breakdown of skin; I70.232 Atherosclerosis of native arteries of right leg with ulceration of calf; I71.4 Abdominal aortic aneurysm, without rupture; F06.31 Mood disorder due to known physiological condition with depressive features; Z87.891 Personal history of nicotine dependence; Z95.1 Presence of aortocoronary bypass graft; Y83.8 Other surgical procedures as the cause of abnormal reaction of the patient, or of later complication, without mention of misadventure at the time of the procedure ==

== ENCOUNTER → 2017-06-30 | Outpatient (CLI) | payer OTHER | LOC: M.WC 03:03 | DX: T81.89XD Other complications of procedures, not elsewhere classified, subsequent encounter (principal); I87.331 Chronic venous hypertension (idiopathic) with ulcer and inflammation of right lower extremity; L97.811 Non-pressure chronic ulcer of other part of right lower leg limited to breakdown of skin; I70.232 Atherosclerosis of native arteries of right leg with ulceration of calf; I71.4 Abdominal aortic aneurysm, without rupture; F06.31 Mood disorder due to known physiological condition with depressive features; Z87.891 Personal history of nicotine dependence; Z68.29 Body mass index [BMI] 29.0-29.9, adult; Z95.1 Presence of aortocoronary bypass graft; Y83.8 Other surgical procedures as the cause of abnormal reaction of the patient, or of later complication, without mention of misadventure at the time of the procedure ==

== ENCOUNTER → 2017-07-02 | Outpatient (CLI) | payer OTHER | LOC: M.WC 03:03 | DX: I87.311 Chronic venous hypertension (idiopathic) with ulcer of right lower extremity (principal); I70.232 Atherosclerosis of native arteries of right leg with ulceration of calf; L97.811 Non-pressure chronic ulcer of other part of right lower leg limited to breakdown of skin; I71.4 Abdominal aortic aneurysm, without rupture; F06.31 Mood disorder due to known physiological condition with depressive features; Z68.29 Body mass index [BMI] 29.0-29.9, adult; Z87.891 Personal history of nicotine dependence; Z95.1 Presence of aortocoronary bypass graft ==

== ENCOUNTER → 2017-07-05 | Outpatient (CLI) | payer OTHER | LOC: M.WC 01:46 | DX: T81.89XD Other complications of procedures, not elsewhere classified, subsequent encounter (principal); I70.232 Atherosclerosis of native arteries of right leg with ulceration of calf; I87.311 Chronic venous hypertension (idiopathic) with ulcer of right lower extremity; L97.811 Non-pressure chronic ulcer of other part of right lower leg limited to breakdown of skin; I71.4 Abdominal aortic aneurysm, without rupture; F06.31 Mood disorder due to known physiological condition with depressive features; Z68.29 Body mass index [BMI] 29.0-29.9, adult; Z87.891 Personal history of nicotine dependence; Z95.1 Presence of aortocoronary bypass graft; Y83.8 Other surgical procedures as the cause of abnormal reaction of the patient, or of later complication, without mention of misadventure at the time of the procedure ==

== ENCOUNTER → 2017-07-07 | Outpatient (CLI) | payer OTHER | LOC: M.WC 04:25 | DX: T81.89XD Other complications of procedures, not elsewhere classified, subsequent encounter (principal); I87.311 Chronic venous hypertension (idiopathic) with ulcer of right lower extremity; I70.232 Atherosclerosis of native arteries of right leg with ulceration of calf; I71.4 Abdominal aortic aneurysm, without rupture; L97.811 Non-pressure chronic ulcer of other part of right lower leg limited to breakdown of skin; F06.31 Mood disorder due to known physiological condition with depressive features; Z68.29 Body mass index [BMI] 29.0-29.9, adult; Z87.891 Personal history of nicotine dependence; Z95.1 Presence of aortocoronary bypass graft; Y83.8 Other surgical procedures as the cause of abnormal reaction of the patient, or of later complication, without mention of misadventure at the time of the procedure ==

== ENCOUNTER → 2017-07-09 | Outpatient (CLI) | payer OTHER | LOC: M.WC 01:42 | DX: T81.89XD Other complications of procedures, not elsewhere classified, subsequent encounter (principal); I71.4 Abdominal aortic aneurysm, without rupture; F06.31 Mood disorder due to known physiological condition with depressive features; Z87.891 Personal history of nicotine dependence; Z95.0 Presence of cardiac pacemaker; Y83.8 Other surgical procedures as the cause of abnormal reaction of the patient, or of later complication, without mention of misadventure at the time of the procedure ==

== ENCOUNTER 2017-07-12 07:25 | Inpatient (IN) | payer OTHER ==
[~2017-07-12] VITALS: Ht 170.2 cm; Wt 81.6 kg
[~2017-07-12 07:25] MED LIST changes: -NEURONTIN100 MG PO; -VITAMIN D3400 UNIT PO
[2017-07-12] MEDS ORDERED: VITAMIN D3400 UNIT PO (14:09)
[2017-07-12] MEDS ORDERED: VITAMIN B-12500 MCG PO (14:10)
[2017-07-12 14:32] VITALS: BP 190/79
[2017-07-12 18:29] VITALS: BP 157/79
[2017-07-12 20:45] VITALS: BP 140/79
[2017-07-13 00:30] VITALS: BP 156/77
[2017-07-13 04:08] VITALS: BP 147/72
[2017-07-13 05:18] LABS: ABSOLUTE BASOPHILS 0.1 thou/uL (0.0-0.2); ABSOLUTE EOSINOPHILS 0.1 thou/uL (0.0-0.7); ABSOLUTE MONOCYTES 0.4 thou/uL (0.0-1.2); ABSOLUTE NEUTROPHILS 5.1 thou/uL (1.6-8.1); BASOPHILS 0.7 %; EOSINOPHILS 1.9 %; HEMATOCRIT 32.1 % (42.0-52.0); HEMOGLOBIN 10.8 gm/dL (14.0-18.0); LYMPHOCYTES 14.8 %; MCHC 33.6 g/dL (28.0-37.0); MONOCYTES 6.4 %; MPV 7.3 fl. (7.2-11.1); NUCLEATED RBCS 0 /100WBC; PLATELET COUNT* 194 thou/uL (150-400); POLYS 76.2 %; RBC 3.38 mil/uL (4.50-6.00); RDW-CV 12.9 % (10.5-14.5); WBC 6.7 thou/uL (4.0-11.0)
[2017-07-13 05:44] LABS: CALCIUM 8.4 mg/dL (8.5-10.1); POTASSIUM 3.8 mmol/L (3.5-5.1)
[2017-07-13 08:31] VITALS: BP 136/72
[2017-07-13 12:00] VITALS: BP 122/86
[2017-07-13 16:00] VITALS: BP 175/89
[2017-07-14 00:12] VITALS: BP 166/86
[2017-07-14 04:00] VITALS: BP 179/83
[2017-07-14 08:00] VITALS: BP 169/80
[2017-07-14 15:11] VITALS: BP 169/80
[2017-07-14 15:14] VITALS: BP 169/80
[2017-07-14] MEDS ORDERED: OXYBUTYNIN 5 MG5 M2 PO (15:26)
[2017-07-14 16:42] VITALS: BP 169/80
--- NOTE | 2017-07-18 10:18 | OP ---
[facility] [address] [place] [address] OPERATIVE REPORT Name: SARITAVANDA Soriano Room: [address] IN .R.#: [id number] Admission: 07/12/17 Attend Phys: Alba Mauro Discharge: 07/14/17 Date of : 32 Report #: [id number] THIS REPORT FOR: //name// CC: Michael Villegas DATE OF SERVICE: 07/12/2017 PREOPERATIVE DIAGNOSIS: Large slowly healing venous stasis ulcer. POSTOPERATIVE DIAGNOSIS: Large slowly healing venous stasis ulcer. SURGEON: Michael Way DO. ASSESSMENT MANAGER: Akanksha Oshea PA-C. PROCEDURE: 1. Split thickness skin grafting of right lower extremity venous stasis ulcer measuring 2 x 3 cm, totalling 6 cm2. 2. Preparation of skin graft harvest site measuring 3 x 3, totalling 9 cm2. ANESTHESIA: Monitored anesthesia care. ESTIMATED BLOOD LOSS: Minimal. SPECIMEN: None. COMPLICATIONS: None. CONDITION: Stable. DISPOSITION: Floor. INDICATIONS FOR THE PROCEDURE AND CONSENT: The patient is an 86-year-old male who presented with a traumatic ulcer of his right lower extremity, ultimately required debridement in the operating room and wound VAC therapy for several weeks. The patient was able to granulate an area. He is planning to have upcoming back surgery and the surgery is being delayed due to his ulcer. Risks and benefits of split thickness skin grafting, Apligraf and local wound care were all discussed with the patient. The patient wished to proceed with the split-thickness skin grafting and was consented and scheduled. PROCEDURE IN DETAIL: After timeout was performed, the patient was placed in supine position. Circumferential sterile prep and drape of the right lower extremity. The venous ulcer was lightly debrided using a 15 blade scalpel, [place] [address] OPERATIVE REPORT Name: VANDA STEIN Room: [address]#: [id number] Admission: 07/12/17 Attend Phys: Alba Mauro Discharge: 07/14/17 Date of : 32 Report #: [id number] removing slough from the wound base. The thigh was then prepared, applying oil to the thigh and on a stretch the Gregorio was then applied to the skin and a short 1-1/2 x 1-1/2 inch swath was obtained as a skin grafting material. Epinephrine-soaked gauze was applied to the skin graft harvest site and skin graft was prepared on the back table. It was applied to the mesher and smoothed and flattened out and brought through the mesher of 1.5:1 ratio. The skin graft was then applied and cut to fit to the ulcer and sutured in place with 4-0 Monocryl suture. A negative pressure wound therapy was then applied over an overlying Adaptic nonadherent gauze as a bolster. Kerlix and Rene compression were also applied to the lower extremity. The skin graft harvest site was then dressed with Xeroform and Tegaderm. The patient tolerated the procedure well. Lap, needle, and instrument counts correct. <ELECTRONICALLY SIGNED> By: Michael Way DO 07/18/[id number] DO /nt
[2017-08-04] MEDS ORDERED: NEURONTIN100 MG PO (12:35)
== END 2017-07-14 16:42 | disposition home or self-care (01) | DRG 574 ==
LOC: M.SUR 07:25 → M.TBA 13:17 → M.SUR 13:22 → EDSTATUS 13:23 → M.TBA 13:25 → M.ORTHSURG 18:01
PROVIDERS: Physician Assistant Surgical; ADMIT Internal Medicine
DX: L97.911 Non-pressure chronic ulcer of unspecified part of right lower leg limited to breakdown of skin (principal); R71.0 Precipitous drop in hematocrit; I48.0 Paroxysmal atrial fibrillation; I87.2 Venous insufficiency (chronic) (peripheral); I10 Essential (primary) hypertension; E78.5 Hyperlipidemia, unspecified; M19.90 Unspecified osteoarthritis, unspecified site; I25.10 Atherosclerotic heart disease of native coronary artery without angina pectoris; Z95.1 Presence of aortocoronary bypass graft; Z79.82 Long term (current) use of aspirin; Z88.8 Allergy status to other drugs, medicaments and biological substances; Z79.899 Other long term (current) drug therapy

== ENCOUNTER → 2017-07-16 | Outpatient (CLI) | payer OTHER ==
[~2017-07-16] MED LIST changes: +NEURONTIN100 MG PO; +VITAMIN D3400 UNIT PO
== END ==
LOC: M.WC 01:31
DX: T81.89XD Other complications of procedures, not elsewhere classified, subsequent encounter (principal); I71.4 Abdominal aortic aneurysm, without rupture; F06.31 Mood disorder due to known physiological condition with depressive features; Z68.29 Body mass index [BMI] 29.0-29.9, adult; Z87.891 Personal history of nicotine dependence; Z95.1 Presence of aortocoronary bypass graft; Y83.8 Other surgical procedures as the cause of abnormal reaction of the patient, or of later complication, without mention of misadventure at the time of the procedure

== ENCOUNTER → 2017-07-20 | Outpatient (CLI) | payer OTHER | LOC: M.WC 08:50 | DX: T81.89XA Other complications of procedures, not elsewhere classified, initial encounter (principal); I87.311 Chronic venous hypertension (idiopathic) with ulcer of right lower extremity; I70.232 Atherosclerosis of native arteries of right leg with ulceration of calf; L97.811 Non-pressure chronic ulcer of other part of right lower leg limited to breakdown of skin; I71.4 Abdominal aortic aneurysm, without rupture; Z68.29 Body mass index [BMI] 29.0-29.9, adult; Z87.891 Personal history of nicotine dependence; Z95.1 Presence of aortocoronary bypass graft; Y92.89 Other specified places as the place of occurrence of the external cause; Y83.8 Other surgical procedures as the cause of abnormal reaction of the patient, or of later complication, without mention of misadventure at the time of the procedure ==

== ENCOUNTER → 2017-07-27 | Outpatient (CLI) | payer OTHER | LOC: M.WC 02:12 | DX: T81.89XD Other complications of procedures, not elsewhere classified, subsequent encounter (principal); I87.311 Chronic venous hypertension (idiopathic) with ulcer of right lower extremity; L97.811 Non-pressure chronic ulcer of other part of right lower leg limited to breakdown of skin; I71.4 Abdominal aortic aneurysm, without rupture; Z87.891 Personal history of nicotine dependence; Z95.1 Presence of aortocoronary bypass graft; Y83.8 Other surgical procedures as the cause of abnormal reaction of the patient, or of later complication, without mention of misadventure at the time of the procedure ==

== ENCOUNTER → 2017-08-03 | Outpatient (CLI) | payer OTHER | LOC: M.WC 02:09 | DX: T81.89XD Other complications of procedures, not elsewhere classified, subsequent encounter (principal); I71.4 Abdominal aortic aneurysm, without rupture; F06.31 Mood disorder due to known physiological condition with depressive features; Z68.29 Body mass index [BMI] 29.0-29.9, adult; Z87.891 Personal history of nicotine dependence; Z95.1 Presence of aortocoronary bypass graft; Y83.8 Other surgical procedures as the cause of abnormal reaction of the patient, or of later complication, without mention of misadventure at the time of the procedure ==

== ENCOUNTER → 2017-08-04 | Outpatient (CLI) | payer OTHER ==
--- NOTE | 2017-08-05 07:50 | PAINCON ---
[address] [address] PAIN MANAGEMENT CONSULTATION Name: WENCESLAODAVINVANDA Christie [facility] [id number] Admission: 08/04/17 Attend Phys: Alba Bullard Discharge: Date of : 32 Report #: [id number] THIS REPORT FOR: //name// CC: Dion Joseph The patient is a very pleasant 86-year-old gentleman, well known to the pain clinic, typically treated for lumbar radiculopathy status post decompressive laminectomy, ongoing chronic neuropathic pain requiring complex medication management. Last seen in the pain clinic 06/13/2017. The patient returns to pain clinic today, he was seen for a prolonged visit from 12:00-12:30, greater than 50% of the 25+ minute visit was spent counseling the patient. The patient had an epidural injection at L3-L4 on 05/19/2017, with overall improvement of ongoing neurogenic claudication type symptoms. He was tentatively scheduled for a lumbar decompressive laminectomy. Medical care has been impacted by a nonhealing lesion in the right lower extremity. Ultimately, he progressed to have a skin graft on 07/14/2017. The patient was diagnosed with atrial fibrillation, started on Plavix. He had significant epistaxis requiring discontinuation of the Plavix. He ultimately is getting a little better healing of the right lower extremity. His scheduled lumbar decompressive laminectomy has been postponed till the end of September. He returns to pain clinic today. He is having ongoing neurogenic claudication if he walks for any period, he has significant pain in the right lower extremity. He has a component of atherosclerotic peripheral vascular disease, though he has had a vascular procedure of the right lower extremity with some improvement of flow. He has been taking Percocet 5/325 typically 1 in the evening. More frequent dosing caused cognitive changes and sedation. He does use tramadol 50 mg plus a Tylenol tablet twice a day for some pain during the day. He uses a walker and/or cane for balance and to offload weight of the right leg. Today, we had a prolonged discussion about therapeutic options. He had planned a river cruise next month. I do think with the poor wound healing and significant compromise function subsequent to a postponing his back surgery, he really is not medically able to travel. I have taken the liberty of writing a letter noting that travel outside of the [facility] would be medically contraindicated presently and for at least until 6 weeks following his back surgery, lumbar decompression is scheduled for late September. We reviewed the fact that opiate medications are being used to provide analgesia adequate to support activities of daily living, [place] [address] PAIN MANAGEMENT CONSULTATION Name: VANDA STEIN Room: [facility] NIR Man#: [id number] Admission: 08/04/17 Attend Phys: Alba Bullard Discharge: Date of : 32 Report #: [id number] specific pain score on the 0-10 Visual Analog Scale. The current opiate medications are providing sufficient analgesia to allow the patient to participate in activities of daily living. The patient is not exhibiting any aberrant behavior suggestive of drug diversion. The patient is not having any adverse reactions to medications. The patient is not suffering from daytime somnolence or mental acuity changes. The patient is managing opiate-induced constipation with appropriate hwev-qhi-jzmygzi agents and dietary considerations. The patient was counseled on concern for caution with operating a motor vehicle while using opiate medications. A physical exam was performed and the patient's functional status was evaluated. All patients with back pain were advised against the bed rest greater than 4 days and were advised to return to normal activities. Pain score assessment was noted and the treatment plan was reviewed with the patient. All current medications, both prescribed and OTC were reviewed and reconciled on the electronic medical record. Tobacco screening was accomplished and smoking cessation was advised when indicated. BMI was noted and diet/exercise modification was recommended for all patients following outside normal parameters. I reviewed with the patient today their responsibilities to safeguard prescription medications, reviewed their responsibility to utilize medications only as prescribed by the physician. They are to seek and receive pain medications only from 1 physician group ( [facility]). They are to use 1 pharmacy and keep the clinic informed if they change pharmacies. Their responsibilities include making followup visits in a timely fashion and to avoid abrupt discontinuation of medication usage. Their responsibilities further include bringing their medications (bottles from the pharmacy with residual pills) to the visit for possible confirmation of pill counts and the patient understands it is their responsibility to submit to random drug screens to ensure both that the medications prescribed are present, and that no other controlled substances are present. All prescriptions provided today were generated electronically. PHYSICAL EXAMINATION: Does show pleasant 86-year-old gentleman. Markedly antalgic gait. Right lower extremity has wound dressing, has a donor site on his right thigh, which is healing nicely for a skin graft, the right lower extremity skin grafts receptor site is improving as well. Hopefully, he will be able to follow through with his back surgery at the end of September. Rises from chair using armrest, markedly antalgic gait, difficulty bearing weight in the right leg, has decreased strength to hip flexion and extension. Well-healed surgical scar compatible with his prior decompressive laminectomy. Diffuse tenderness across the low back. ASSESSMENT: Lumbar radiculopathy, status post decompressive laminectomy; [place] [address] PAIN MANAGEMENT CONSULTATION Name: VANDA STEIN [facility] [id number] Admission: 08/04/17 Attend Phys: Alba Bullard Discharge: Date of : 32 Report #: [id number] neuropathic pain requiring complex medication management, right lower extremity nonhealing lesion status post skin graft. RECOMMENDATIONS: 1. Long discussion with the patient today about therapeutic option. We recommend he continue Percocet 5/325 half to one tablet at bedtime, tramadol 50 mg twice daily with Tylenol. 2. We will start the patient on gabapentin 100 mg, gradually titrating the dose to a target dose 1 in the morning and 3 at night. If this causes untoward sedation, we will have him take 4 at bedtime. I wrote a prescription for 120 tablets with 2 refills. We will have the patient to follow up simply on an as needed basis. His surgeon can write for the pain medications postoperatively and then he can follow up with Dr. Macho Monroy at the pain clinic at [facility] if needed. The patient discharged in good and stable condition after a prolonged visit, greater than 50% of time spent counseling the patient regarding therapeutic options. Discharged in stable condition. <ELECTRONICALLY SIGNED> By: Tariq Joseph DO 08/05/17 0750 1328 1713[facility] Joseph DO /jt
== END ==
LOC: M.PC 04:00
DX: M54.16 Radiculopathy, lumbar region (principal); Z79.899 Other long term (current) drug therapy

== ENCOUNTER → 2017-08-11 | Outpatient (CLI) | payer OTHER | LOC: M.WC 04:10 | DX: T81.89XD Other complications of procedures, not elsewhere classified, subsequent encounter (principal); I70.232 Atherosclerosis of native arteries of right leg with ulceration of calf; L97.821 Non-pressure chronic ulcer of other part of left lower leg limited to breakdown of skin; I71.4 Abdominal aortic aneurysm, without rupture; F06.31 Mood disorder due to known physiological condition with depressive features; Z68.29 Body mass index [BMI] 29.0-29.9, adult; Z87.891 Personal history of nicotine dependence; Z95.1 Presence of aortocoronary bypass graft; Y83.8 Other surgical procedures as the cause of abnormal reaction of the patient, or of later complication, without mention of misadventure at the time of the procedure ==

== ENCOUNTER → 2017-08-18 | Outpatient (CLI) | payer OTHER | LOC: M.WC 03:32 | DX: T81.89XD Other complications of procedures, not elsewhere classified, subsequent encounter (principal); I71.4 Abdominal aortic aneurysm, without rupture; F06.31 Mood disorder due to known physiological condition with depressive features; Z87.891 Personal history of nicotine dependence; Z95.0 Presence of cardiac pacemaker; Y83.8 Other surgical procedures as the cause of abnormal reaction of the patient, or of later complication, without mention of misadventure at the time of the procedure ==

== ENCOUNTER → 2017-09-01 | Outpatient (CLI) | payer OTHER | LOC: M.WC 04:03 | DX: T81.89XD Other complications of procedures, not elsewhere classified, subsequent encounter (principal); I71.4 Abdominal aortic aneurysm, without rupture; F06.31 Mood disorder due to known physiological condition with depressive features; Z68.29 Body mass index [BMI] 29.0-29.9, adult; Z87.891 Personal history of nicotine dependence; Z95.1 Presence of aortocoronary bypass graft; Y83.8 Other surgical procedures as the cause of abnormal reaction of the patient, or of later complication, without mention of misadventure at the time of the procedure ==

== ENCOUNTER → 2018-02-15 | Outpatient (CLI) | payer OTHER ==
--- NOTE | 2018-02-18 17:20 | PAINCON ---
[address] [address] PAIN MANAGEMENT CONSULTATION Name: SARITAVANDA Soriano Room: [facility] NIR Man#: [id number] Admission: 02/15/18 Attend Phys: Cale Monroy MD Discharge: Date of : 32 Report #: [id number] THIS REPORT FOR: //name// CC: Cale Tee DATE OF SERVICE: 02/15/2018 CHIEF COMPLAINT: Low back pain and leg pain. HISTORY OF PRESENT ILLNESS: The patient is an 87-year-old gentleman who has been seen in the pain clinic by Dr. Tariq Joseph. This is my first visit with the patient. He has history of lumbar radiculopathy. He has history of spinal stenosis. He is status post lumbar decompression. 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 He has undergone epidural steroid injections in the past and gleaned some benefit from these. Has neurogenic claudication problems. He had decompression, but still notes that he is having pain and discomfort. Does find that pain from the lumbar laminectomy performed by Dr. Greenfield has provided about 50% improvement in his pain. The patient has a history of infection involving his right lateral leg. States that he had a difficult time in healing. He was seen in the past by the wound clinic. He has undergone balloon angioplasty of the artery in his leg. He states that he is continuing to increase his level of activity. 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 Notes that at this juncture, he is able to walk more. Does use a cane. States that he uses it more for intermittent use instead of depending on it. He has had trigger point involving his middle finger. Has had an injection in this area and noted some improvement in it, but still has a catch in the finger. ALLERGIES: LISINOPRIL and MELOXICAM. CURRENT MEDICATIONS: Discontinued medications have been Plavix. CURRENT MEDICATIONS: Tylenol Extra Strength 500 mg b.i.d., aspirin 81 mg, vitamin D3 400 units, vitamin B12 500 mcg, fish oil 1000 mg, Cardura 4 mg, Proscar 5 mg, gabapentin 100 mg, hydrochlorothiazide 12.5 mg, losartan 100 mg, Naprosyn 500 mg b.i.d., oxybutynin 2.5 mg for abdominal cramps, oxycodone 5 mg t.i.d., Zocor 20 mg, sotalol 80 mg b.i.d., heart rate control, tramadol 50 mg tablet p.r.n. pain. PAST MEDICAL HISTORY: Wound care. Paroxysmal atrial fibrillation. PAST SURGICAL HISTORY: Left total hip arthroplasty, quadruple bypass, hypertension, hyperlipidemia, right leg balloon angioplasty, abdominal aortic aneurysm, and laminectomy. [address] [place] [address] PAIN MANAGEMENT CONSULTATION Name: VANDA STEIN Room: [facility]#: [id number] Admission: 02/15/18 Attend Phys: Cale Monroy MD Discharge: Date of : 32 Report #: [id number] SOCIAL HISTORY: He is retired, still works with [employer]. PAIN CLINIC ASSESSMENT: 1. History of osteoarthritis. The patient has some arthritic changes in his low back area. 2. Rheumatoid arthritis. The patient is not being treated for rheumatoid arthritis. 3. Height 5 feet 7 inches, weight 189 pounds, BMI is 29.6. 4. Vital Signs: Blood pressure 152/81, heart rate 63, respiratory rate 16, room air saturation 95%, temperature 97.7. 5. Pain intensity 5/10. 6. Fall history: The patient has not fallen in the last 3 months. 7. Blood thinner. The patient is not on a blood thinning medication. 8. Hypertension. The patient is being treated for hypertension. 9. Opioid greater than 6 weeks. The patient is receiving some opioid medications, oxycodone. 10. Risk assessment tool, low for opioid use. 11. Functional assessment tool. 12. Recreational drug use, the patient denies. 13. Tobacco: The patient denied. 14. Alcohol: The patient denies use of alcoholic beverages. PHYSICAL EXAMINATION: GENERAL: The patient is a well-developed white male, appears his stated age. He is alert and oriented x 3. Affect is appropriate. Speech is fluent. HEENT: Normocephalic, atraumatic. Extraocular eye muscles intact. Sclerae nonicteric. Mucous membranes are moist. The patient has lost his upper bridge. States that he has four teeth on one side to the teeth on the other and he is going to have them removed. The patient is going to have a general anesthetic. The patient without JVD or adenopathy. HEART: History of atrial fibrillation. ABDOMEN: Nontender. Bowel sounds present. The patient has history of AAA. The patient has pain and discomfort in the low back area. Standing erect, the patient has a bend to the left. Walks with use of a cane. Complains of pain and discomfort in the lower portion of his back and rates it as a 5/10. Muscle strength is judged to be 4+ for the major muscle groups in the lower extremity. The patient has a trigger finger on his left hand middle finger. IMPRESSION: 1. History of neurogenic claudication status post surgery with some continued pain and discomfort and limitation in his ability to ambulate because of this pain. 2. Wound care. 3. Paroxysmal atrial fibrillation. RECOMMENDATIONS: We discussed treatment options [place] [address] PAIN MANAGEMENT CONSULTATION Name: VANDA STEIN [facility] [id number] Admission: 02/15/18 Attend Phys: Cale Monroy MD Discharge: Date of : 32 Report #: [id number] juncture, he would like to proceed with an injection in the low back area with a hope this will help decrease some of the pain and discomfort that he is experiencing. We have discussed the use of an epidural steroid injection. Possible complications of the procedure were reviewed with the patient. He will return to the pain clinic after he has had his teeth removed. We explained that an injection with steroid prior to this might cause some problems with infection as well as delayed healing. We would like to thank you for letting us participate in his care. We hope he continues to improve. <ELECTRONICALLY SIGNED> By: Cale Monroy MD 02/18/18 1720 [id number]. Macho Monroy MD /nt
== END ==
LOC: M.PC 02-10 13:00
DX: M54.16 Radiculopathy, lumbar region (principal); I48.0 Paroxysmal atrial fibrillation; Z86.79 Personal history of other diseases of the circulatory system; Z79.899 Other long term (current) drug therapy

== ENCOUNTER → 2018-04-05 | Outpatient (CLI) | payer OTHER ==
--- NOTE | ~2018-04-05 | PAINCON ---
[address] [address] PAIN MANAGEMENT CONSULTATION Name: VANDA STEIN Room: [facility] Donovan#: [id number] Admission: 04/05/18 Attend Phys: Cale Monroy MD Discharge: Date of : 32 Report #: [id number] THIS REPORT FOR: //name// CC: Cale Tee DATE OF SERVICE: 04/05/2018 CHIEF COMPLAINT: Here for an epidural injection. HISTORY: The patient is an 87-year-old gentleman, who has been seen in the pain clinic. He has a history of lumbar radiculopathy. He has undergone surgery in the lumbar area by Dr. Rainer Greenfield. At this point, he continues to have pain, which is problematic, it involves his low back and the patient is limited to how far he can travel before onset of pain and discomfort in the lower portion of his back and with pain that radiates down into his leg. He had his last surgery in 09/2017. He is still having pain and has been referred to the pain clinic for evaluation and treatment. 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 He has fallen at times. CURRENT MEDICATIONS: Plavix has been discontinued. Extra strength Tylenol 500 mg b.i.d., aspirin 81 mg, vitamin D3 400 units, vitamin B12 500 mcg, fish oil 1000 mcg, Cardura 4 mg, Proscar 5 mg, gabapentin 100 mg, hydrochlorothiazide 12.5 mg, losartan 100 mg, Naprosyn 500 mg b.i.d., Oxybutynin 2.5 mg for abdominal cramps, oxycodone 5 mg t.i.d., Zocor 20 mg, sotalol 80 mg b.i.d., heart rate control, and tramadol 50 mg. ALLERGIES: THE PATIENT IS ALLERGIC TO LISINOPRIL AND MELOXICAM. PAIN CLINIC ASSESSMENT AND PQRS: 1. History of osteoarthritis. The patient has some arthritic changes in the lower portion of his back and has had surgery. 2. Rheumatoid arthritis. The patient is not being treated for rheumatoid arthritis. 3. Pain intensity is 5/10. 4. Fall risk. The patient has fallen since we saw him last. 5. Blood thinner. The patient is not on a blood thinning medication. 6. Hypertension. The patient is being treated for hypertension. 7. Opioids greater than 6 weeks. The patient receives medications from one source, the pain clinic. 8. Risk assessment tool, low for opioid use. 9. Functional assessment tool. 10. Recreational drug use. The patient denies use of recreational drugs. 11. Tobacco: The patient denies use of tobacco. 12. Alcohol: The patient [place] [address] PAIN MANAGEMENT CONSULTATION Name: VANDA STEIN Room: [facility]#: [id number] Admission: 04/05/18 Attend Phys: Cale Monroy MD Discharge: Date of : 32 Report #: [id number] PHYSICAL EXAMINATION: GENERAL: The patient is a well-developed, well-nourished white male. He appears his stated age. He is alert and oriented x 3. His affect is appropriate. Speech is fluent. Height is 5 feet 7 inches, weight is 187 pounds, and BMI is 29.3. VITAL SIGNS: Blood pressure is 131/70, heart rate is 65, respiratory rate is 16, room air saturation is 92%, and temperature is 98.0. HEENT: Normocephalic, atraumatic. Extraocular eye muscles intact. Sclerae nonicteric. Mucous membranes are moist. HEART: Heart rate, history of atrial fibrillation. ABDOMEN: Nontender. Bowel sounds present. The patient has a history of abdominal aortic aneurysm. EXTREMITIES: The patient walks with a cane. Standing erect can cause some pain and discomfort. The patient has difficulty walking more than about 50-100 feet before onset of pain and discomfort. Muscle strength in upper extremity is judged to be 4+ for the major muscle groups. Lower extremity is 4+. The patient also has a trigger finger in his left middle finger. IMPRESSION: 1. History of neurogenic claudication, status post surgery with continued pain and discomfort with limitation in his ability to ambulate because of this. 2. Wound history with need for wound treatment in the right lower extremity. 3. Paroxysmal atrial fibrillation. RECOMMENDATIONS: We have discussed treatment options with the patient. The patient has returned today for an epidural injection. He did have some time off because of surgery with removal of teeth. Risks and benefits of an epidural steroid injection were discussed. They include but are not limited to infection, worsening of pain, no improvement in pain, and the patient elects to proceed. PROCEDURE NOTE: The patient was assisted to the examination table. He was placed in the prone position. His back was sterilely prepped with a Betadine solution. Fluoroscopy using anterior, posterior as well as lateral viewing were implemented. The patient's back was infiltrated with 0.25% bupivacaine. A 17-gauge Tuohy with loss of resistance technique was used to gain access to the epidural space. There was no CSF, heme, or paresthesia. A total of 80 mg of Depo-Medrol, 40 mg of triamcinolone, and 2 mL of 0.25% bupivacaine was injected. The patient tolerated the procedure well. There were no complications. He remained in the pain clinic [place] [address] PAIN MANAGEMENT CONSULTATION Name: VANDA STEIN Room: [facility].#: [id number] Admission: 04/05/18 Attend Phys: Cale Monroy MD Discharge: Date of : 32 Report #: [id number] We would like to thank you for letting us to participate in his care. We hope he continues to improve. The injection was at L5-S1 midline. By: [id number]. Macho Monroy MD /TATO
== END | disposition home or self-care (01) ==
LOC: M.PC 09:40
DX: M54.16 Radiculopathy, lumbar region (principal); G89.29 Other chronic pain; I10 Essential (primary) hypertension; I48.0 Paroxysmal atrial fibrillation; Z98.890 Other specified postprocedural states; Z79.899 Other long term (current) drug therapy; Z79.01 Long term (current) use of anticoagulants; Z88.8 Allergy status to other drugs, medicaments and biological substances; Z79.82 Long term (current) use of aspirin

== ENCOUNTER → 2018-05-12 | Outpatient (CLI) | payer OTHER ==
--- NOTE | ~2018-05-12 | PAINCON ---
[address] [address] PAIN MANAGEMENT CONSULTATION Name: VANDA STEIN Room: [facility] Donovan#: [id number] Admission: 05/12/18 Attend Phys: Cale Monroy MD Discharge: Date of : 32 Report #: [id number] THIS REPORT FOR: //name// CC: Cale Tee DATE OF SERVICE: 05/12/2018 CHIEF COMPLAINT: "Low back pain and I would like to get another injection." HISTORY OF PRESENT ILLNESS: The patient is an 87-year-old gentleman who has been followed in the Pain Clinic. As you recall, he has history of lumbar radiculopathy. He has undergone surgery in the low back area. He continues to have pain today, which he rates as a 5/10. He states that he continues to go to the gym 5 days a week. He has low back pain which is radiating down into his legs bilaterally. There is some numbness in his hands as well. States that he is scheduled to have an EMG regarding his hands next week. He continues to use gabapentin, tramadol, Tylenol, Naprosyn, and oxycodone to help control his pain. 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 CURRENT MEDICATIONS: Plavix has been discontinued. Extra strength Tylenol 500 mg b.i.d., aspirin 81 mg, vitamin D3 400 units, vitamin B12 500 mcg, fish oil 1000 mcg, Cardura 4 mg, Proscar 5 mg, gabapentin 100 mg, hydrochlorothiazide 12.5 mg, losartan 100 mg, Naprosyn 500 mg, oxybutynin 2.5 mg for abdominal pain, oxycodone 5 mg 1 p.o. t.i.d., Zocor 20 mg, sotalol 80 mg b.i.d., tramadol 50 mg. ALLERGIES: THE PATIENT IS ALLERGIC TO LISINOPRIL AND MELOXICAM. PAIN CLINIC ASSESSMENT AND PQRS: 1. The patient does have some osteoarthritis. He has changes in his lower back and has had surgery in this area. He is not being treated for rheumatoid arthritis. 2. Pain intensity: 5/10. 3. Fall history: The patient has not fallen in the last 3 months. 4. Blood thinner: The patient is not on a blood thinning medication. 5. Hypertension: The patient is being treated for hypertension. 6. Opioids greater than 6 weeks: The patient receives medication from one source from Pain Clinic. 7. Risk assessment tool: Low for opioid use. 8. Functional assessment tool. 9. Recreational drug use: The patient denies use of recreational drugs. 10. Tobacco: The patient denies use of tobacco. 11. Alcohol: The patient denies use of alcoholic beverages. PHYSICAL EXAMINATION: GENERAL: The patient is a well-developed, well-nourished, [place] [address] PAIN MANAGEMENT CONSULTATION Name: VANDA STEIN Room: [facility]#: [id number] Admission: 05/12/18 Attend Phys: Cale Monroy MD Discharge: Date of : 32 Report #: [id number] appears his stated age. He is alert and oriented x 3. His affect is appropriate. Speech is fluent. HEENT: Normocephalic, atraumatic. Extraocular eye muscles intact. Sclerae nonicteric. Mucous membranes are moist. NECK: Without adenopathy. HEART: Regular rate. History of atrial fibrillation. ABDOMEN: Nontender. Bowel sounds present. The patient has history of aortic aneurysm. EXTREMITIES: The patient walks with a cane. He stands erect which causes some increased discomfort. The patient has some difficulty walking, about 50-100 feet before onset of discomfort. MUSCULOSKELETAL: Muscle strength in the upper extremity is judged to be 4+/5 for the major muscle groups in the upper extremity. Lower extremity is 4+/5. The patient has a trigger finger in his middle left hand. IMPRESSION: 1. History of neurogenic claudication, status-post surgery with continued pain and discomfort with limitation of his ability to ambulate. 2. Wound treatment of the right lower extremity. 3. Paroxysmal atrial fibrillation, in sinus today. RECOMMENDATIONS: We discussed treatment options with the patient. Risks and benefits of an epidural steroid injection were again reviewed. They include but are not limited to infection, worsening of pain, no improvement in pain, and the patient elects to proceed. PROCEDURE NOTE: The patient was taken to the procedure room. He was assisted in getting on the examination table. A pillow was placed under his abdomen to bolster and improve positioning. Fluoroscopy using anterior and posterior as well as lateral viewing were implemented. The patient's back was sterilely prepped with betadine solution and allowed to dry. Left paramedian approach was undertaken at the L5-S1 dermatomal area. This area had been sterilely prepped with Betadine and infiltrated with 0.25% bupivacaine. Total of 80 mg Depo-Medrol, 40 mg triamcinolone, and 2 mL of 0.25% bupivacaine were injected. The patient tolerated the procedure well. There were no complications. A total of 80 mg Depo-Medrol, 40 mg triamcinolone, and 2 mL of 0.25% bupivacaine were injected. The patient tolerated the procedure well. He remained in the Pain Clinic for an appropriate amount of time. A total of 29 seconds fluoroscopy time was used. Again, this was at the L5-S1 dermatomal area, midline, using [place] [address] PAIN MANAGEMENT CONSULTATION Name: VANDA STEIN Room: [facility].#: [id number] Admission: 05/12/18 Attend Phys: Cale Monroy MD Discharge: Date of : 32 Report #: [id number] The patient will follow up in the future as needed. We would like to thank you for letting us participate in his care. We hope he continues to improve. By: [id number]. Macho Monroy MD /nt
== END | disposition home or self-care (01) ==
LOC: M.PC 05:03
DX: M54.16 Radiculopathy, lumbar region (principal); M19.90 Unspecified osteoarthritis, unspecified site; Z88.8 Allergy status to other drugs, medicaments and biological substances; Z79.899 Other long term (current) drug therapy; I48.0 Paroxysmal atrial fibrillation; I10 Essential (primary) hypertension; F11.20 Opioid dependence, uncomplicated

== ENCOUNTER → 2018-10-27 | Outpatient (CLI) | payer OTHER ==
--- NOTE | ~2018-10-27 | PAINCON ---
[address] [address] PAIN MANAGEMENT CONSULTATION Name: VANDA STEIN Room: [facility] Donovan#: [id number] Admission: 10/27/18 Attend Phys: Cale Monroy MD Discharge: Date of : 32 Report #: [id number] THIS REPORT FOR: //name// CC: Cale Tee DATE OF SERVICE: 10/27/2018 CHIEF COMPLAINT: "Here for medications, I am still having pain in the low back and some pain in the right shoulder." HISTORY: The patient is an 88-year-old gentleman who has been seen in the Pain Clinic because of lumbar radiculopathy. He suffers from spinal stenosis. Prolonged standing causes significant pain and discomfort. He does walk and ambulate with a cane. He fell on 07/10/2018 and ruptured a rotator cuff on the right side. He is scheduled to undergo right shoulder replacement in December. He has undergone an injection in the right shoulder area by his orthopedic doctor. He notes that the pain increases significantly with activity. He continues to work at [employer]. He continues to have some weakness in his legs bilaterally. He rates his pain between 1-9 depending on activity. Standing and activity can worsen his discomfort. He has tried to build up his muscle strength in the gym. He is able to ride a riding stationary bike. Other activities where he is standing erect exacerbates his pain and discomfort. He has returned to the pain clinic with the thought of undergoing an injection. ALLERGIES: LISINOPRIL AND MELOXICAM. CURRENT MEDICATIONS: The patient has used Plavix which was discontinued, Tylenol 500 mg, aspirin 81 mg, vitamin D3 400 units, vitamin B12 500 mcg, fish oil 1000 mcg, Cardura 4 mg, Proscar 5 mg, gabapentin 100 mg, hydrochlorothiazide 12.5 mg, losartan 100 mg, Naprosyn 500 mg, oxybutynin 2.5 mg for abdominal pain, oxycodone 5 mg t.i.d., Zocor 20 mg, sotalol 80 mg b.i.d., tramadol 50 mg. PAIN CLINIC ASSESSMENT AND PQRS: 1. The patient has some osteoarthritic changes in his lower back and has had surgery in the low back area. He is not being treated for rheumatoid arthritis. 2. Height 5 feet 7 inches, weight 184 pounds, BMI is 29. 3. Vital signs: Blood pressure 124/69, heart rate is 60, temperature 98.3, respiratory rate 16, room air saturation 95%. 4. Pain intensity: 1-9 depending on the level of activity. 5. Fall history: The patient has not fallen in the last 3 months. 6. Blood thinner: The patient is not on a blood thinning medication. 7. Hypertension: The patient is being treated for hypertension. 8. Opioids greater than 6 weeks: The patient has used opioid medications to help curtail his pain. 9. Risk assessment tool: [place] [address] PAIN MANAGEMENT CONSULTATION Name: WENCESLAODAVINVANDA [id number] Admission: 10/27/18 Attend Phys: Cale Monroy MD Discharge: Date of : 32 Report #: [id number] 10. Functional assessment tool. 11. Recreational drug use: The patient denies. 12. Tobacco: The patient denies use of tobacco. 13. Alcohol: The patient denies alcoholic beverages. PHYSICAL EXAMINATION: GENERAL: The patient is a well-developed, well-nourished, white male. He appears his stated age. He is alert and oriented. Affect is appropriate. Speech is fluent. HEENT: Normocephalic, atraumatic. Extraocular eye muscles intact. Sclerae nonicteric. Mucous membranes are moist. NECK: Without adenopathy or JVD. HEART: Regular rate. The patient has a history of atrial fibrillation. ABDOMEN: Nontender. Bowel sounds present. The patient has a history of aortic aneurysm. EXTREMITIES: Upper extremity muscle strength judged to be 4+/5 for the major muscle groups in the upper extremity. The patient walks leaning to the right. He has and uses a cane for support. He has difficulty walking greater than about 100 feet before onset of his discomfort. Lower extremity muscle strength is 4/5 for the major muscle groups in the lower extremity. He has an antalgic gait. He has a trigger finger on the left hand. IMPRESSION: 1. History of neurogenic claudication, status-post surgery, and continued pain limiting his ability to ambulate. 2. Wound treatment on lower extremity, improved. 3. History of paroxysmal atrial fibrillation, sinus today. RECOMMENDATIONS: We discussed treatment options with the patient. The patient is considering surgery in about one month. We discussed the options of an epidural injection. The patient states that his surgeon has requested that he not receive another steroid injection in the shoulder area. There is a possibility that he might not want him to undergo a steroid injection today. We called the orthopedic office. They did concur that they would rather refrain from an epidural injection at this point given that he will be undergoing surgery in the near future. We will consider an epidural injection in the future. The patient can continue with his current medications of gabapentin 100 mg b.i.d., tramadol 50 mg t.i.d. and oxycodone 5 mg when needed. We would like to thank you for letting us participate in his care. We hope he continues to improve. He will return after his surgery from Dr. Malone, the orthopedic surgeon. By: [id number]. Macho Monroy MD /nt
== END ==
LOC: M.PC 04:46
DX: M54.16 Radiculopathy, lumbar region (principal); M48.061 Spinal stenosis, lumbar region without neurogenic claudication; I48.0 Paroxysmal atrial fibrillation; Z88.8 Allergy status to other drugs, medicaments and biological substances; Z79.899 Other long term (current) drug therapy

== ENCOUNTER → 2019-02-23 | Outpatient (CLI) | payer OTHER ==
[~2019-02-23] MED LIST changes: +BUTRANS1 EACH INTRADERM; +MEDROLDOSEPACK PO; +NITROSTAT0.4 M1 PO; +VOLTAREN GEL 1100 G2 TOP; +VYZULTA5 ML OPHTHALMIC
--- NOTE | 2019-03-01 13:30 | PAINCON ---
[address] [address] PAIN MANAGEMENT CONSULTATION Name: VANDA STEIN [id number] Admission: 02/23/19 Attend Phys: Cale Monroy MD Discharge: Date of : 32 Report #: [id number] THIS REPORT FOR: //name// CC: Cale Tee DATE OF SERVICE: 02/23/2019 CHIEF COMPLAINT: Continued back and leg pain. HISTORY: The patient is an 88-year-old gentleman who has been followed in the pain clinic. As you may recall, he has significant problems with his back. He suffers from spinal stenosis. After walking short distances, his pain becomes quite problematic. He was walking from his car to the pain clinic. [place] between the pain clinic and the car, he was overcome by pain. This required him to stop. He then stopped for a few minutes, his pain improved. Rates his pain as a 7/10 with activity. It is not very problematic at all when he is resting. He does continue to go to the gym. He does ride a stationary bike. He finds that, that is helpful. Prolonged standing and activity when he is walking is problematic. He does use a cane. Leaning forward decrease the pain and discomfort he has been having. He has been told that he has poor circulation in his legs. He states that he has had some ballooning of the arteries in his lower extremities to help with skin wound healing. Has pain involving the right shoulder. He feels that because of the chronic pain, walking is significantly impaired and limited. Does have improvement in his right shoulder. He did have a replacement of this in December. He continues to work in physical therapy in regards to the right upper extremity. He feels that his legs are weak. Tries to remain active at the gym. Notes some soreness in his hands. States that his primary doctor has given him some medicine to rub on his hands. Feels that, that is helpful. Cannot recall the name of the medication, but it sounds like the Voltaren gel. Describes his pain as an activity that stops him in his tracks. He can only walk for "so long." ALLERGIES: LISINOPRIL, MELOXICAM. CURRENT MEDICATIONS: 1. Plavix has been discontinued. 2. Tylenol 500 mg, aspirin 81 mg, vitamin D3 400 units, vitamin B12 500 mcg, fish oil 1000 mcg, Cardura 4 mg, Proscar 5 mg, gabapentin 100 mg, hydrochlorothiazide 12.5 mg, losartan 100 mg, Naprosyn 500 mg, oxybutynin 2.5 mg for abdominal pain. 3. Oxycodone. The patient tries not to take the opioid medications. 4. Zocor 20 mg, sotalol ____ mg b.i.d., tramadol 50 mg. PAIN CLINIC ASSESSMENT AND PQRS: 1. 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 He is not being treated for rheumatoid arthritis. 2. Height 5 feet 7 inches, weight 184 pounds, BMI is 28. 3. Vital signs: Blood pressure 158/81, heart rate 60, respiratory rate 16, room air saturation 95%, temperature 98.1. 4. Pain intensity, 2/10 with sitting and can rise to a 7-8/10 with activity and standing. 5. Fall history, the patient has not fallen in the last 3 months. 6. Blood thinner, the patient is not on a blood thinning medication. 7. Hypertension, the patient is being treated for hypertension. 8. Opioids greater than 6 weeks. The patient finds that they curtail his pain, but he prefers not to take the least amount of opioids. 9. Risk assessment tool, low for opioid use. 10. Functional assessment tool. 11. Recreational drug use, the patient denies. 12. Tobacco, the patient denies use of tobacco. 13. Alcohol, the patient denies use of alcoholic beverages. PHYSICAL EXAMINATION: GENERAL: The patient is a well-developed, well-nourished, white male. He appears his stated age. He is alert and oriented x 3. His affect is appropriate. Speech is fluent. HEENT: Normocephalic, atraumatic. Extraocular eye muscles intact. Sclerae nonicteric. Mucous membranes are moist. NECK: Without adenopathy or JVD. HEART: Regular rate. The patient has some history of atrial fibrillation. ABDOMEN: Nontender. Bowel sounds present. The patient has a well-healing scar on the right arm, status post right shoulder replacement. EXTREMITIES: Upper extremity muscle strength judged to be 4+/5 for the major muscle groups in the upper extremity. The patient walks leaning to the right. He uses a cane for support. Has difficulty walking greater than about 100 feet before onset of discomfort. Lower extremity muscle strength judged to be 4+/5 for the major muscle groups in the lower extremity. IMPRESSION: 1. History of neurogenic claudication, status post lumbar surgery for spinal stenosis. 2. Continued limited activity secondary to claudication. 3. Right upper shoulder replacement. Continues with physical therapy. 4. History of paroxysmal atrial fibrillation, state sinus today. RECOMMENDATIONS: We discussed treatment options with the patient. We explained to the patient the possible options. The patient does have spinal stenosis, which is limiting his ability to ambulate. He is not a real good candidate for spinal surgery at this juncture. We have talked about the reasonable options. We will have the patient try a Medrol Dosepak. [place] [address] PAIN MANAGEMENT CONSULTATION Name: SARITAVANDA Christie Room: [facility] NIR Man#: [id number] Admission: 02/23/19 Attend Phys: Cale Monroy MD Discharge: Date of : 32 Report #: [id number] is beneficial. His right arm has healed reasonably well. I do not think that this will cause any problems with his arm. This might in fact be more of some benefit to his shoulder and improve his ability to increase his range of motion while he is going to physical therapy. We have offered the patient option of the least problematic narcotic medications. We will have the patient try Butrans patch 5 mg. Hopefully, he will find this of some benefit and will be able to increase his activity. Options for another epidural steroid injection still remains. He will return to the pain clinic. If this pain continues to be problematic without any improvement, we would then proceed with an epidural steroid injection. The patient will also continue with use of what sounds like the Voltaren gel to his hands. He finds that this is helpful with the arthritic pain he is experiencing in his hands. We would like to thank you for letting us participate in his care. We hope he continues to improve. <ELECTRONICALLY SIGNED> By: Cale Monroy MD 03/01/19 1330 [id number] [id number]. Macho Monroy MD /[facility]
== END ==
LOC: M.PC 05:23
DX: M54.9 Dorsalgia, unspecified (principal); M79.609 Pain in unspecified limb; I48.0 Paroxysmal atrial fibrillation; Z96.611 Presence of right artificial shoulder joint

== ENCOUNTER → 2019-09-07 | Outpatient (CLI) | payer OTHER ==
[~2019-09-07] MED LIST changes: +HYDROCODON-ACE1 EAC7 PO
--- NOTE | 2019-09-21 15:59 | PAINCON ---
[address] [address] PAIN MANAGEMENT CONSULTATION Name: VANDA STEIN Room: [facility].#: [id number] Admission: 09/07/19 Attend Phys: Cale Monroy MD Discharge: Date of : 32 Report #: [id number] THIS REPORT FOR: //name// cc: Dion Tee MD, Todd MD ~ THIS REPORT FOR: //name// CC: Cale Tee MD DATE OF SERVICE: 09/07/2019 CHIEF COMPLAINT: Return of continued low back pain and leg pain, which has worsened. HISTORY: The patient is an 89-year-old gentleman who has been seen in the Pain Clinic in the past because of lumbar radiculopathy. He has noticed a worsening of pain and discomfort. It involves his back and legs. He has a history of poor circulation problems. His current medication regimen of tramadol, Naprosyn and gabapentin takes the edge off his pain. He would like to proceed with another epidural steroid injection, which have been helpful in the past. He rates his pain as an 8/10. Pain is worse when he is walking, particularly when he is climbing stairs. He does walk with the use of a cane. Does have clinical findings consistent with spinal stenosis and walking from his car to the Pain Clinic he must stop. Does ride a stationary bike, which is helpful. ALLERGIES: LISINOPRIL, MELOXICAM. CURRENT MEDICATIONS: Losartan 100 mg, vitamin D3 2000 international units, vitamin B12 1000 mcg, aspirin 81 mg, tramadol two 50 mg tablets t.i.d., Lipitor 20 mg, doxazosin 4 mg, finasteride 5 mg, oxybutynin 2.5 mg a.m., 5 mg p.m., sotalol 40 mg b.i.d., Naprosyn 500 mg, fish oil 240 mg, gabapentin 100 mg a.m. and 3 tablets p.m., oxycodone p.r.n., nitroglycerin p.r.n., Diflucan gel 4 times daily to the hands as needed. PAIN CLINIC ASSESSMENT/PQRS: 1. The patient has changes in his low back area because of surgery and because of spinal stenosis. He is not being treated for rheumatoid arthritis. 2. Height 5 feet 7 inches, weight 186 pounds, BMI is 28. 3. Vital signs: Blood pressure 158/81, heart rate 61, respiratory rate is 17, 95%, and temperature 98.5. 4. Pain intensity, 8/10. 5. Fall history: The patient has not fallen since we saw him last. 6. Blood thinner. The patient is not on a blood thinning medication. 7. Hypertension. The patient is being [place] [address] PAIN MANAGEMENT CONSULTATION Name: VANDA STEIN Room: [facility]#: [id number] Admission: 09/07/19 Attend Phys: Cale Monroy MD Discharge: Date of : 32 Report #: [id number] 8. Opioids greater than 6 weeks. The patient received medication from the Pain Clinic. 9. Risk assessment tool, low for opioid use. 10. Functional assessment tool reviewed. 11. Recreational drug use. The patient denies. 12. Tobacco: The patient denies. 13. Alcohol: The patient denies use of alcoholic beverages. PHYSICAL EXAMINATION: GENERAL: The patient is a well-developed, well-nourished white male. Appears his stated age. He is alert and oriented x 3. His affect is appropriate. Speech is fluent. He is wearing a mask. NECK: Without adenopathy or JVD. HEART: Regular rate. History of atrial fibrillation. ABDOMEN: Nontender, well-healed scar. MUSCULOSKELETAL: Right arm, status post right shoulder replacement. EXTREMITIES: Upper extremity muscle strength is judged to be 4+/5 for the major muscle groups in the upper extremity. The patient leans to the right when walking. Uses a cane for support. Has difficulty walking greater than 100 feet before onset of pain and discomfort. Lower extremity muscle strength is judged to be 4+/5 for the major muscle groups in the lower extremity. IMPRESSION: 1. History of neurogenic claudication, status post lumbar surgery for spinal stenosis. 2. Continued limited activity secondary to claudication. 3. Right extremity replacement improved. 4. History of paroxysmal atrial fibrillation, stable today. RECOMMENDATIONS: We discussed treatment options with the patient. We will consider an epidural steroid injection. Risks and benefits have been discussed with the patient. Possible complications of the procedure were reviewed. We will review them again when he comes. He will then undergo an epidural steroid injection with hopes of increasing his pain benefit. We would like to thank you for letting us participate in his care. We hope he continues to improve. <ELECTRONICALLY SIGNED> By: Cale Monroy MD 09/21/19 1559 1142 [id number]. Macho Monroy MD /nt
== END ==
LOC: M.PC 12:00
PROVIDERS: ATTEND Anesthesiology Pain Medicine
DX: M54.5 Low back pain (principal); M79.604 Pain in right leg; I48.91 Unspecified atrial fibrillation; M43.26 Fusion of spine, lumbar region; F11.20 Opioid dependence, uncomplicated; Z79.899 Other long term (current) drug therapy; Z97.13 Presence of artificial right leg (complete) (partial)

== ENCOUNTER → 2019-09-19 | Outpatient (CLI) | payer OTHER ==
--- NOTE | 2019-10-04 08:36 | PAINCON ---
[address] [address] PAIN MANAGEMENT CONSULTATION Name: VANDA STEIN Room: [facility]#: [id number] Admission: 09/19/19 Attend Phys: Cale Monroy MD Discharge: Date of : 32 Report #: [id number] THIS REPORT FOR: //name// cc: Dion Tee MD, Todd MD ~ THIS REPORT FOR: //name// CC: Cale Tee DATE OF SERVICE: 09/19/2019 CHIEF COMPLAINT: Here for treatment of low back pain. HISTORY: The patient is an 89-year-old gentleman who has been followed in the pain clinic. As you recall, he suffers from lumbar radicular pain. He has had a worsening of his pain, involves pain radiating down into his legs. He has a history of spinal stenosis. He notes his pain is particularly problematic with prolonged standing. Activities such as walking from his car to different venues are problematic. He must stop before he gets to his destination because of the severity of pain. He has returned today for epidural steroid injection with hopes of improvement in his pain and discomfort. ALLERGIES: 1. LISINOPRIL. 2. MELOXICAM. CURRENT MEDICATIONS: Losartan 100 mg, vitamin D3 2000 international units, vitamin B12 1000 mcg, aspirin 81 mg, tramadol 2 tablets 50 mg t.i.d., Lipitor 20 mg, doxazosin 4 mg, finasteride 5 mg, oxybutynin 2.5 mg a.m. and 5 mg p.m., sotalol 40 mg b.i.d., Naprosyn 500 mg, fish oil 240 mg, gabapentin 100 mg a.m., 3 tablets at bedtime, oxycodone p.r.n., nitroglycerin p.r.n., Diflucan gel 4 times daily to the hands as needed. PAIN CLINIC ASSESSMENT/PQRS: 1. The patient has some changes in his low back area because of surgery and spinal stenosis. He is not being treated for rheumatoid arthritis. 2. Height 5 feet 7 inches, weight 185 pounds, BMI is 29. 3. Vital signs: Blood pressure is 140/73, heart rate 71, respiratory rate 16, room air saturation 97%, temperature 98.3. 4. Pain intensity is 0 while sitting and can rise to a 10/10 with activity. 5. Fall history: The patient has not fallen in the last 3 months. 6. Blood thinner: The patient is not on a blood thinning medication. 7. Hypertension: The patient is being treated for hypertension. 8. Opioids greater than 6 weeks: The patient is receiving [place] [address] PAIN MANAGEMENT CONSULTATION Name: VANDA STEIN Room: [facility]#: [id number] Admission: 09/19/19 Attend Phys: Cale Monroy MD Discharge: Date of : 32 Report #: [id number] 9. Risk assessment tool: Low for opioid use. 10. Functional assessment tool reviewed. 11. Recreational drug use: The patient denies. 12. Tobacco: The patient denies. 13. Alcohol: The patient denies use of alcoholic beverages. PHYSICAL EXAMINATION: GENERAL: The patient is a well-developed, well-nourished white male. Appears his stated age. He is alert and oriented x 3. His affect is appropriate. Speech is fluent. He is wearing a mask. NECK: Without adenopathy or JVD. HEART: Regular rate. Has a history of atrial fibrillation. ABDOMEN: Nontender. Bowel sounds present. LUNGS: Generally clear. MUSCULOSKELETAL: Upper extremity muscle strength 4+/5 for the major muscle groups in the upper extremity. Status post right shoulder replacement. The patient is walking with a cane. Has a somewhat antalgic walk. Has a lean to his walking and lateral curvature to spine while ambulating. Lower extremity muscle strength judged to be 5/5 and stable. IMPRESSION: 1. History of neurogenic claudication, status post surgery for spinal stenosis. 2. Continued limited activity secondary to claudication. 3. Right upper extremity replacement. 4. History of paroxysmal atrial fibrillation, stable today. RECOMMENDATIONS: We discussed treatment options with the patient. The patient has returned today for an epidural injection. Risks and benefits of the procedure were again discussed. They include but are not limited to infection, worsening pain, no improvement in pain, nerve damage, infection, and the patient elects to proceed. PROCEDURE NOTE: The patient was taken to the procedure area. He was then assisted in getting on the examination table. His back was sterilely prepped with a Betadine solution. At the L4-L5 area, 0.25% bupivacaine was used. A total of 80 mg Depo-Medrol, 40 mg triamcinolone and 2 mL of 0.25% bupivacaine was injected. The patient tolerated the procedure well. There were no complications. Remained in the pain clinic for an appropriate amount of time. He will follow up as needed. We would like to thank you for letting us to participate in his care. We hope he continues to improve. <ELECTRONICALLY SIGNED> By: Cale Monroy MD 10/04/19 0836 [id number]. MD DEE DEE Archibald
== END | disposition home or self-care (01) ==
LOC: M.PC 04:10
PROVIDERS: ATTEND Anesthesiology Pain Medicine
DX: M54.16 Radiculopathy, lumbar region (principal); G89.29 Other chronic pain; I48.0 Paroxysmal atrial fibrillation; Z98.890 Other specified postprocedural states; Z79.899 Other long term (current) drug therapy; Z88.8 Allergy status to other drugs, medicaments and biological substances; Z96.611 Presence of right artificial shoulder joint; Z79.01 Long term (current) use of anticoagulants

== ENCOUNTER → 2020-05-28 | Outpatient (CLI) | payer OTHER ==
[~2020-05-28] MED LIST changes: +CARVEDILOL12.5 MG PO; +FISH OIL EC 1,1 EACH PO; +LIPITOR 20 MG T20 M1 PO; +NORVASC5 MG PO; +SUPER THERAVIT1 EACH PO; +TRAMADOL 50 MG50 MG PO; +XARELTO20 MG PO
== END ==
LOC: M.PC 09:03
PROVIDERS: ATTEND Anesthesiology Pain Medicine
DX: M54.81 Occipital neuralgia (principal); Z86.69 Personal history of other diseases of the nervous system and sense organs; Z96.611 Presence of right artificial shoulder joint; Z76.89 Persons encountering health services in other specified circumstances

== ENCOUNTER → 2020-06-04 | Outpatient (CLI) | payer OTHER | END | disposition home or self-care (01) | LOC: M.PC 08:03 | PROVIDERS: ATTEND Anesthesiology Pain Medicine | DX: M54.81 Occipital neuralgia (principal); I10 Essential (primary) hypertension; E78.5 Hyperlipidemia, unspecified; I48.91 Unspecified atrial fibrillation; Z98.890 Other specified postprocedural states; Z79.899 Other long term (current) drug therapy; Z96.611 Presence of right artificial shoulder joint; Z79.01 Long term (current) use of anticoagulants ==

== ENCOUNTER → 2020-11-12 | Outpatient (CLI) | payer OTHER ==
[~2020-11-12] MED LIST changes: +EFFER-K 10 MEQ10 ME1 PO; +FUROSEMIDE 20 M20 MG PO; +PREGABALIN25 MG PO; +PROTONIX 20 MG20 M1 PO
== END ==
LOC: M.PC 09:53
PROVIDERS: ATTEND Anesthesiology Pain Medicine
DX: M79.2 Neuralgia and neuritis, unspecified (principal); B02.9 Zoster without complications; I48.0 Paroxysmal atrial fibrillation; Z98.890 Other specified postprocedural states

== ENCOUNTER → 2020-11-26 | Outpatient (CLI) | payer OTHER | END | disposition home or self-care (01) | LOC: M.PC 08:36 | PROVIDERS: ATTEND Anesthesiology Pain Medicine | DX: M54.16 Radiculopathy, lumbar region (principal); G89.29 Other chronic pain; I10 Essential (primary) hypertension; E78.5 Hyperlipidemia, unspecified; Z98.890 Other specified postprocedural states; Z79.899 Other long term (current) drug therapy; Z88.8 Allergy status to other drugs, medicaments and biological substances ==

== ENCOUNTER → 2021-01-14 | Outpatient (CLI) | payer OTHER | LOC: M.PC 09:07 | PROVIDERS: ATTEND Anesthesiology Pain Medicine | DX: M48.062 Spinal stenosis, lumbar region with neurogenic claudication (principal); M54.81 Occipital neuralgia; I48.0 Paroxysmal atrial fibrillation; B02.9 Zoster without complications; Z96.611 Presence of right artificial shoulder joint; Z88.8 Allergy status to other drugs, medicaments and biological substances; Z79.899 Other long term (current) drug therapy ==